=== PATIENT | female | born 1990 | race Caucasian/White ===

== ENCOUNTER 2016-07-20 19:58 | Emergency (ER) | payer MEDICAID ==
[~2016-07-20] VITALS: Ht 172.7 cm; Wt 59.0 kg
[~2016-07-20 19:58] MED LIST: ACETAMINOPHEN-H1 TA2 PO; ACETAMINOPHEN-O1 TAB PO; AMOXICILLIN 50500 MG PO; AMOXICILLIN875 MG PO; ANTIPYRINE-BENZOCAIN OT; ASPIRIN 325MG325 MG PO; BACTRIM DS 8001 TA1 PO; BACTRIM DS 8001 TAB PO; CIPRO 500MG TA500 MG PO; CITALOPRAM40 MG PO; CORTISPORIN OTI10 M1 OT; DARVON-N100 MG PO; DILAUDID4 MG PO; FLAGYL 500MG.500 MG PO; FLAGYL500 MG PO; FLEXERIL10 MG PO; FLOMAX 0.4MG C0.4 MG PO; FLOXIN 0.3%5 ML/BOT OT; LORTAB 5/500 501 TAB PO; LORTAB 500 MG-71 TAB PO; MACROBID 100MG100 M1 PO; MEDROL 4MG. DOSE4 MG PO; NAPROSYN500 M1 PO; NICODERM C21 MG/24 H TD; NITROFURANTOIN100 M4 PO; NOMEDS; NOMEDS *; NOMEDS XX; NORCO 325 MG-51 TAB PO; OMNICEF 300 MG300 MG PO; PERCOGESIC1 TAB PO; PHENERGAN 25MG.25 M1 PO; PRENATAL1 TA2 PO; PYRIDIUM 200MG200 MG PO; ROBAXIN-750750 M1 PO; SEPTRA DS 800 M1 TAB PO; ULTRACET 325 MG1 TAB PO; ULTRAM 50 MG TA50 MG PO; VICODIN 5/500 T1 TAB PO; VOLTAREN75 MG PO
[2016-07-20 20:26] LABS: URINE BILIRUBIN - DIPSTICK NEGATIVE (NEG); URINE BLOOD NEGATIVE (NEG)
--- NOTE | 2016-07-20 21:19 | Emergency Room Report ---
History of Present Illness Time Seen by 2024 Presenting Problem in Triage Pt arrived:Wheelchair Presenting Problem:PT C/O PAIN IN HER LOWER ABD AND ADVISES SHE HAS A HX OF ENDO AND HAS BEEN DEALING WITH THE PAIN FOR A COUPLE OF DAYS. 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 N Clinical Suspician of Infection? N Mental Status: 1 - Regular (Normal Baseline) Sepsis Risk:Low Sepsis Risk Have you (or family members/close friends) recently traveled outside the [place]? N If Yes, where/when: Have you had exposure to infectious disease within the past month? N TB? Other? Specify: Source patient, RN notes reviewed, family, old records Exam Limitations no limitations Comment lower pelvic pain with hx of endometrosis and saw dr beth today Cardiac Chest Pain Chest pain indicative of cardiac No Timing/Duration this evening Severity moderate ALLERGIES Coded Allergies: codeine (06/02/16) ketorolac (From TORADOL) (06/02/16) Home Medications Active Scripts Naproxen (Naprosyn 500MG Tab) 500 MG PO BID #14 TAB Prov: 07/17/16 History Medical History General CAD? No Angina: No [place]: No Hypertension? No Hyperlipidemia? No CHF? No DVT? No PE? No COPD? No Asthma? Yes Anemia? No GERD? No Gastric ulcers? No GI Bleed? No Hernia? No Thyroid Problems? No Hypothyroidism? No CVA? No Seizures? No Diabetes? No Renal Insuffiency? No End Stage Renal Disease? No UTI? Yes Stones? Yes BPH? No GB Disease: No Nephritic Syndrome? No Asplenia? No Hepatitis? No Sickle Cell Disease? No Arthritis? No Migraines? No Cataracts? No Glaucoma? No MRSA? No HIV? No TB? No Anxiety? No Depression? No Cancer? No More? 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 Respiratory denies cough, denies shortness of breath, denies wheezing Cardiovascular denies chest pain, denies palpitations, denies syncope Gastrointestinal see HPI, abdominal pain, nausea Genitourinary see HPI, abnormal vaginal bleeding. denies: discharge, dysuria, hematuria. Musculoskeletal denies back pain, denies joint pain, denies neck pain Skin denies rash Psychiatric/Neurological denies headache, denies seizure Physical Exam Vital Signs Vital Signs Date Time Temp Pulse Resp B/P Pulse O2 O2 Flow FiO2 Ox Delivery Rate 07/20 2101 84 16 95/53 98 07/20 2010 98.4 96 16 109/68 98 - WBC >12,000 or <4,000 or 10% bands? 2 or more SIRS Criteria Met? B/P: MAP:81 Creatinine >2.0? UA output<0.5ml/kg/hr for 2 hrs? Platelet count >100,000? Lactate >2.0mmol/1? INR >1.2 or PTT > than 60 sec? Evidence of Organ Dysfunction? Provider documented clinical suspician of infection? N Sepsis Criteria Count: 1 Sepsis Risk: Low Sepsis Risk General Appearance no apparent distress Eye Exam - bilateral eye PERRL, bilateral eye EOMI Ear, Nose, Throat normal ENT inspection Neck supple Respiratory Status No: respiratory distress. 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 No Results/Orders Laboratory Tests 07/20/161999: Urine Color YELLOW, Urine Appearance CLEAR, Urine pH 7.0, Ur Specific [place] 1.010, Urine Protein NEGATIVE, Urine Ketones NEGATIVE, Urine Blood NEGATIVE, Urine Nitrate NEGATIVE, Urine Bilirubin NEGATIVE, Urine Urobilinogen 0.2, Ur Leukocyte Esterase NEGATIVE, Urine RBC 3-5, Urine WBC 3-5, Urine Bacteria 1+, Urine Mucus 1+, Urine Glucose NEGATIVE Orders Procedure Date/time Status URINALYSIS/COMPLETE 07/20 2018 Complete Departure Departure Time of Disposition 2114 Disposition DC Home or Self Care(routine) Clinical Impression Primary Impression: Pelvic pain Condition STABLE Referrals Filipe HERRERA,Bryan Hook (Family) Patient Instructions DI for Endometriosis Additional Instructions please see pcp and budget counselor for follow up Discharge Counseling Counseled pt/family regarding diagnosis, test results, medications/RX, follow up needs ED Critical Care Critical Care No at [phone]
--- NOTE | 2016-07-20 21:19 | Emergency Room Report ---
History of Present Illness Time Seen by 2024 Presenting Problem in Triage Pt arrived:Wheelchair Presenting Problem:PT C/O PAIN IN HER LOWER ABD AND ADVISES SHE HAS A HX OF ENDO AND HAS BEEN DEALING WITH THE PAIN FOR A COUPLE OF DAYS. 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 N Clinical Suspician of Infection? N Mental Status: 1 - Regular (Normal Baseline) Sepsis Risk:Low Sepsis Risk Have you (or family members/close friends) recently traveled outside the [place]? N If Yes, where/when: Have you had exposure to infectious disease within the past month? N TB? Other? Specify: Source patient, RN notes reviewed, family, old records Exam Limitations no limitations Comment lower pelvic pain with hx of endometrosis and saw dr beth today Cardiac Chest Pain Chest pain indicative of cardiac No Timing/Duration this evening Severity moderate ALLERGIES Coded Allergies: codeine (06/02/16) ketorolac (From TORADOL) (06/02/16) Home Medications Active Scripts Naproxen (Naprosyn 500MG Tab) 500 MG PO BID #14 TAB Prov: 07/17/16 History Medical History General CAD? No Angina: No [place]: No Hypertension? No Hyperlipidemia? No CHF? No DVT? No PE? No COPD? No Asthma? Yes Anemia? No GERD? No Gastric ulcers? No GI Bleed? No Hernia? No Thyroid Problems? No Hypothyroidism? No CVA? No Seizures? No Diabetes? No Renal Insuffiency? No End Stage Renal Disease? No UTI? Yes Stones? Yes BPH? No GB Disease: No Nephritic Syndrome? No Asplenia? No Hepatitis? No Sickle Cell Disease? No Arthritis? No Migraines? No Cataracts? No Glaucoma? No MRSA? No HIV? No TB? No Anxiety? No Depression? No Cancer? No More? 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 Respiratory denies cough, denies shortness of breath, denies wheezing Cardiovascular denies chest pain, denies palpitations, denies syncope Gastrointestinal see HPI, abdominal pain, nausea Genitourinary see HPI, abnormal vaginal bleeding. denies: discharge, dysuria, hematuria. Musculoskeletal denies back pain, denies joint pain, denies neck pain Skin denies rash Psychiatric/Neurological denies headache, denies seizure Physical Exam Vital Signs Vital Signs Date Time Temp Pulse Resp B/P Pulse O2 O2 Flow FiO2 Ox Delivery Rate 07/20 2101 84 16 95/53 98 07/20 2010 98.4 96 16 109/68 98 - WBC >12,000 or <4,000 or 10% bands? 2 or more SIRS Criteria Met? B/P: MAP:81 Creatinine >2.0? UA output<0.5ml/kg/hr for 2 hrs? Platelet count >100,000? Lactate >2.0mmol/1? INR >1.2 or PTT > than 60 sec? Evidence of Organ Dysfunction? Provider documented clinical suspician of infection? N Sepsis Criteria Count: 1 Sepsis Risk: Low Sepsis Risk General Appearance no apparent distress Eye Exam - bilateral eye PERRL, bilateral eye EOMI Ear, Nose, Throat normal ENT inspection Neck supple Respiratory Status No: respiratory distress. 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 No Results/Orders Laboratory Tests 07/20/161999: Urine Color YELLOW, Urine Appearance CLEAR, Urine pH 7.0, Ur Specific [place] 1.010, Urine Protein NEGATIVE, Urine Ketones NEGATIVE, Urine Blood NEGATIVE, Urine Nitrate NEGATIVE, Urine Bilirubin NEGATIVE, Urine Urobilinogen 0.2, Ur Leukocyte Esterase NEGATIVE, Urine RBC 3-5, Urine WBC 3-5, Urine Bacteria 1+, Urine Mucus 1+, Urine Glucose NEGATIVE Orders Procedure Date/time Status URINALYSIS/COMPLETE 07/20 2018 Complete Departure Departure Time of Disposition 2114 Disposition DC Home or Self Care(routine) Clinical Impression Primary Impression: Pelvic pain Condition STABLE Referrals Filipe HERRERA,Bryan Hook (Family) Patient Instructions DI for Endometriosis Additional Instructions please see pcp and purchasing department clerk for follow up Discharge Counseling Counseled pt/family regarding diagnosis, test results, medications/RX, follow up needs ED Critical Care Critical Care No at [phone]
[2016-07-20 21:30] VITALS: BP 99/53
[2016-08-31] MEDS ORDERED: NORCO1 TAB PO (10:35)
[2016-09-01] MEDS ORDERED: HYDROMORPHONE2 MG PO (07:59)
[2016-09-01] MEDS ORDERED: MOTRIN 400MG.400 MG PO (08:00)
[2016-09-03] MEDS ORDERED: MOTRIN 600MG.600 MG PO (19:12)
== END 2016-07-20 21:30 | disposition home or self-care (01) ==
LOC: ER 19:58
PROVIDERS: Emergency Medicine
DX: R10.2 Pelvic and perineal pain (principal); N80.0 Endometriosis of uterus

== ENCOUNTER 2017-03-03 20:21 | Emergency (ER) | payer SELFPAY ==
[~2017-03-03] VITALS: Ht 172.7 cm; Wt 56.7 kg
[~2017-03-03 20:21] MED LIST changes: +DICLOFENAC 50MG50 MG PO; +HYDROMORPHONE2 MG PO; +MOTRIN 400MG.400 MG PO; +MOTRIN 600MG.600 MG PO; +NORCO1 TAB PO; +ROBAXIN500 M1 PO
[2017-03-03 20:39] LABS: URINE BILIRUBIN - DIPSTICK NEGATIVE (NEG); URINE BLOOD NEGATIVE (NEG)
[2017-03-03 20:48] LABS: AMPHETAMINES/METAMPHETAMINES NEGATIVE ng/mL (<1000)
[2017-03-03 21:37] LABS: LYMPH # 2.5 K/mm3 (0.7-4.5); LYMPH % 28.6 % (10-50.0)
[2017-03-03 21:41] LABS: HEMOGLOBIN 14.4 g/dL (12.2-16.2)
--- NOTE | 2017-03-03 22:01 | Emergency Room Report ---
History of Present Illness Time Seen by 2030 Presenting Problem in Triage Pt arrived:Walked Presenting Problem:C/O PAIN TO CENTER OF CHEST. REPORTS PAIN WORSE WITH INSPIRATION. C/O SHORTNESS OF BREATH. 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 N Clinical Suspician of Infection? N Mental Status: 1 - Regular (Normal Baseline) Sepsis Risk:Low Sepsis Risk Have you (or family members/close friends) recently traveled outside the [place]? N If Yes, where/when: Have you had exposure to infectious disease within the past month? N TB? Other? Specify: Source patient, RN notes reviewed, family, old records Exam Limitations no limitations Comment mid sternal chest pain which started tonight with pain with insp and some crsmpy abd pain Cardiac Chest Pain Chest pain indicative of cardiac No Timing/Duration this evening Severity moderate ALLERGIES Coded Allergies: tramadol (Mild, ITCHING 08/31/16) codeine (06/02/16) ketorolac (From TORADOL) (06/02/16) Home Medications Reported Medications No Known Home Medications History Medical History General CAD? No Angina: No [place]: No Hypertension? No Hyperlipidemia? No CHF? No DVT? No PE? No COPD? No Asthma? Yes Anemia? No GERD? No Gastric ulcers? No GI Bleed? No Hernia? No Thyroid Problems? No Hypothyroidism? No CVA? No Seizures? No Diabetes? No Renal Insuffiency? No End Stage Renal Disease? No UTI? Yes Stones? Yes BPH? No GB Disease: No Nephritic Syndrome? No Asplenia? No Hepatitis? No Sickle Cell Disease? No Arthritis? No Migraines? No Cataracts? No Glaucoma? No MRSA? No HIV? No TB? No Anxiety? No Depression? No Cancer? No More? 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 Respiratory denies cough, denies shortness of breath, denies wheezing Cardiovascular see HPI, chest pain, denies palpitations, denies syncope Gastrointestinal denies abdominal pain, denies diarrhea, denies vomiting Genitourinary denies: dysuria, frequency, hesitancy, hematuria. Musculoskeletal denies back pain, denies joint pain, denies joint swelling, denies neck pain Skin denies rash Psychiatric/Neurological denies headache, denies seizure Physical Exam Vital Signs Vital Signs Date Time Temp Pulse Resp B/P Pulse O2 O2 Flow FiO2 Ox Delivery Rate 03/03 2233 78 16 111/69 98 03/03 2138 98.3 63 16 109/66 99 03/03 2022 98.6 96 18 115/68 99 - WBC >12,000 or <4,000 or 10% bands? 2 or more SIRS Criteria Met? B/P: MAP:83 Creatinine >2.0? UA output<0.5ml/kg/hr for 2 hrs? Platelet count >100,000? Lactate >2.0mmol/1? INR >1.2 or PTT > than 60 sec? Evidence of Organ Dysfunction? Provider documented clinical suspician of infection? N Sepsis Criteria Count: 1 Sepsis Risk: Low Sepsis Risk General Appearance no apparent distress Eye Exam - bilateral eye PERRL, bilateral eye EOMI Ear, Nose, Throat normal ENT inspection Neck supple Respiratory Status No: trachea midline. Lung Sounds bilateral: lungs clear. 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 No Results/Orders Laboratory Tests 03/03/170: Sodium 141, Potassium 4.0, Chloride 103, Carbon Dioxide 30, BUN 8, Creatinine 0.6, Estimated Creat Clear 126, Estimated GFR (MDRD) 120, Glucose 92, Calcium 9.4, Total Bilirubin 0.6, AST 12 L, ALT 13, Alkaline Phosphatase 116, Creatine Kinase 55, CK-MB (CK-2) Rel Index 0.9, CK and CKMB Interp < 0.5, Troponin I < 0.02, Total Protein 8.0, Albumin 4.2, Globulin 3.8 H, Albumin/Globulin Ratio 1.1, Amylase 95, Lipase 154, WBC 8.6, RBC 4.66, Hgb 14.4, Hct 42.7, MCV 91.7, RDW 12.2, Plt Count 387, MPV 7.2 L, Gran % 67.0, Gran # 5.8, Lymphocytes % 28.6 , Monocytes % 3.3, Eosinophils % 0.8, Basophils % 0.3, Lymphocytes # 2.5, Monocytes # 0.3, Eosinophils # 0.1, Basophils # 0.0, PUBS MCHC 33.7, MCH 30.9 03/03/172029: Opiates Screen NEGATIVE, Urine Methadone Screen NEGATIVE, Barbiturates NEGATIVE, Phencyclidine Screen NEGATIVE, Amphetamines Screen NEGATIVE, Benzodiazepines Screen NEGATIVE, Cocaine Screen NEGATIVE, Marijuana (THC) Screen NEGATIVE, Urine Color YELLOW, Urine Appearance CLEAR, Urine pH 7.0, Ur Specific [place] 1.010, Urine Protein NEGATIVE, Urine Ketones NEGATIVE, Urine Blood NEGATIVE, Urine Nitrate NEGATIVE, Urine Bilirubin NEGATIVE, Urine Urobilinogen 0.2, Ur Leukocyte Esterase NEGATIVE, Urine Glucose NEGATIVE Current Medication Orders Sig/Sonam Start time Last Medication Dose Route Stop Time Status Admin Famotidine 20 MG ONCE ONE 03/03 2215 DC 03/03 IV 03/03 Metoclopramide HCl 10 MG ONCE ONE 03/03 2215 DC 03/03 IVP 03/03 Sodium Chloride 8 ML ONCE ONE 03/03 2215 DC 03/03 IV 03/03 Famotidine 0 .STK-MED ONE 03/03 2205 DC IV Sodium Chloride 0 .STK-MED ONE 03/03 2205 DC IV Metoclopramide HCl 0 .STK-MED ONE 03/03 2204 DC .ROUTE Sodium Chloride 10 ML PRN PRN 03/03 2030 AC IV 03/04 2030 Orders Procedure Date/time Status DIET-NOTHING BY MOUTH 03/[address] ABD & PELVIS W/O CONTRAST 03/03 2050 Active 12 LEAD EKG-BESSON (INITIAL) 03/03 2031 Active ELECTROCARDIOGRAM REQUEST 03/[address] ABD/PELVIS REQ 03/03 2031 Complete CHEST(2 VIEWS-NOT PORTABLE) 03/03 2031 Active IV SALINE LOCK 03/03 2031 Active URINALYSIS/COMPLETE 03/03 2031 Complete LIPASE 03/03 2031 Complete DRUG ABUSE SCREEN (TRIAGE) 03/03 2031 Complete COMPLETE METABOLIC PANEL 03/03 2031 Complete CBC WITH AUTO DIFF 03/03 2031 Complete CARDIAC ENZYMES 03/03 2031 Complete AMYLASE 03/03 2031 Complete CM/EKG CM/physician assistant certified Rhythm Normal Sinus Rhythm EKG no evid. of ischemic chgs XRAY/CT/US XRAY/CT/US 1 CT abdomen, pelvis CT interpretation by discussed w/radiologist Time results known: 2155 CT Results normal/NAD XRAY/CT/US 2 XRAY chest XR interpretation by reviewed by me Xray Results normal/NAD Departure Departure Time of Disposition 2155 Disposition DC Home or Self Care(routine) Clinical Impression Primary Impression: Chest pain Qualifiers: Chest pain type: unspecified Qualified Code: R07.9 - Chest pain, unspecified Condition STABLE Referrals Bryan Dent MD (Family) Patient Instructions DI for Atypical Chest Pain Additional Instructions see pcp for follow up Discharge Counseling Counseled pt/family regarding diagnosis, test results, medications/RX, follow up needs Prescriptions Current Visit Scripts No Known Home Medications ED Critical Care Critical Care No at 2250
[2017-03-03 22:03] LABS: BUN 8 mg/dL (7-18)
[2017-03-03 22:05] LABS: GFR (ESTIMATED) 120 ML/MIN (59-)
[2017-03-03 22:56] VITALS: BP 111/69
--- NOTE | 2017-03-04 05:10 | RADIOLOGY REPORT PS360 ---
CHEST(2 VIEWS-NOT PORTABLE) HISTORY: C/O CHEST PAIN ORDERING PHYSICIAN: Arsen Dent MD PATIENT AGE: 26 years COMPARISON: 02/22/2014 FINDINGS: The cardiomediastinal silhouette and pulmonary vascularity are within normal limits. The lungs are clear without infiltrates, suspicious nodules, or pleural effusions. No acute bony abnormalities. IMPRESSION: Negative chest, no acute finding
--- NOTE | 2017-03-04 06:24 | RADIOLOGY REPORT PS360 ---
CT ABD PELVIS W/O CONTRAST CLINICAL INDICATION: Generalized abdominal pain with diarrhea C/O ABD PAIN ORDERING PHYSICIAN: Arsen Dent MD PATIENT AGE: 26 years COMPARISON: 10/31/2015 TECHNIQUE: Axial images obtained with sagittal and coronal reformats. PROCEDURE: Oral Contrast: None IV Contrast: None . FINDINGS: The lung bases are clear. The liver, gallbladder, spleen, adrenal glands, and pancreas have an unremarkable unenhanced CT appearance. There is a nonobstructing 2 mm stone in the upper pole the right kidney. No hydronephrosis or hydroureter. No ureteral calculi. Unremarkable appearing urinary bladder. No intestinal obstruction or free air. No evidence of appendicitis or diverticulitis. Post hysterectomy changes. Bilateral tubal ligation clips are present. There may be a small right ovarian cyst at 2 cm. No acute bony anomalies. A small bone island is present in the proximal right femur. IMPRESSION: 1. No acute intra-abdominal or pelvic pathology. 2. Nonobstructing right renal calculus. 3. 2 cm right ovarian cyst
== END 2017-03-03 22:57 | disposition home or self-care (01) ==
LOC: ER 20:21
PROVIDERS: Emergency Medicine
DX: R07.9 Chest pain, unspecified (principal); Z72.0 Tobacco use

== ENCOUNTER 2017-05-04 14:49 | Emergency (ER) | payer SELFPAY ==
[~2017-05-04] VITALS: Ht 172.7 cm; Wt 56.7 kg
--- NOTE | 2017-05-04 15:04 | Emergency Room Report ---
History of Present Illness Time Seen by MD Harper Presenting Problem in Triage Pt arrived:Walked Presenting Problem:PT C/O TIREDNESS, N/V/D, ABDOMINAL PAIN, COLD AND HOT FLASHES , AND POSSIBLE FEVERS. 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 N Clinical Suspician of Infection? N Mental Status: 1 - Regular (Normal Baseline) Sepsis Risk:Low Sepsis Risk Have you (or family members/close friends) recently traveled outside the [place]? N If Yes, where/when: Have you had exposure to infectious disease within the past month? N TB? Other? Specify: Comment The patient says that she got up this morning not feeling well, had diarrhea when she went to the bathroom. She is continuing to have diarrhea, 4 episodes. 2 episodes of vomiting. Pain in her midepigastrium. She feels chilled, but temperature not taken. No blood in the stool. No recent exposures, travel, or antibiotics. ALLERGIES Coded Allergies: tramadol (Mild, ITCHING 08/31/16) codeine (06/02/16) ketorolac (From TORADOL) (06/02/16) History Medical History General CAD? No Angina: No NH: No Hypertension? No Hyperlipidemia? No CHF? No DVT? No PE? No COPD? No Asthma? Yes Anemia? No GERD? No Gastric ulcers? No GI Bleed? No Hernia? No Thyroid Problems? No Hypothyroidism? No CVA? No Seizures? No Diabetes? No Renal Insuffiency? No End Stage Renal Disease? No UTI? Yes Stones? Yes BPH? No GB Disease: No Nephritic Syndrome? No Asplenia? No Hepatitis? No Sickle Cell Disease? No Arthritis? No Migraines? No Cataracts? No Glaucoma? No MRSA? No HIV? No TB? No Anxiety? No Depression? No Cancer? No More? 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 Family History Family Hx Diabetes No CAD No Hypertension Yes Hyperlipidemia No Cancer No TB No Social History Smoking Hx Smoker: Current Every Day Smoker Tobacco: Yes Type Cigarettes Packs/day < 1 Pack Alcohol Alcohol: No Review of Systems All Other Systems Reviewed and Negative Constitutional chills Gastrointestinal abdominal pain, diarrhea, nausea, vomiting Physical Exam Vital Signs Vital Signs Date Time Temp Pulse Resp B/P Pulse O2 O2 Flow FiO2 Ox Delivery Rate 05/04 1736 98.3 96 18 108/62 98 05/04 1453 98.0 78 20 106/60 98 General Appearance no apparent distress Eye Exam - bilateral eye EOMI Ear, Nose, Throat hearing grossly normal, normal ENT inspection Neck normal inspection, full range of motion Respiratory Status Yes: trachea midline, chest symmetrical. No: respiratory distress. Lung Sounds bilateral: normal breath sounds, lungs clear. Cardiovascular normal exam, regular rate/rhythm, no peripheral edema, no gallop, no JVD, no murmur, no rub, normal peripheral pulses Peripheral Pulses Pulses normal Yes Gastrointestinal normal bowel sounds, soft, no organomegaly, no guarding, no rebound, tenderness (epigastric and LLQ) Extremities normal inspection Neurologic alert, oriented x 3 Mental status normal mood/affect Skin intact, normal color, warm/dry Medical Decision Making LABS/Meds/Orders Pt receiving controlled substance in ED? No Cassius was queried for this patient? Yes Comment [id number] rxs. last rx 11/03/16, 6 percocet 7.5mg. Results/Orders Laboratory Tests 05/04/17 1645: Opiates Screen POSITIVE H, Urine Methadone Screen NEGATIVE, Barbiturates NEGATIVE, Phencyclidine Screen NEGATIVE, Amphetamines Screen NEGATIVE, Benzodiazepines Screen NEGATIVE, Cocaine Screen NEGATIVE, Marijuana (THC) Screen NEGATIVE, Urine Color YELLOW, Urine Appearance CLEAR, Urine pH 7.0, Ur Specific [place] <= 1.005, Urine Protein NEGATIVE, Urine Ketones NEGATIVE, Urine Blood NEGATIVE, Urine Nitrate NEGATIVE, Urine Bilirubin NEGATIVE, Urine Urobilinogen 0.2, Ur Leukocyte Esterase NEGATIVE, Urine RBC NONE, Urine WBC OCC, Ur Squamous Epith Cells TNTC, Urine Bacteria 3+, Urine Glucose NEGATIVE 05/04/17 1521: Sodium 136, Potassium 3.8, Chloride 104, Carbon Dioxide 27, BUN 11, Creatinine 0.6, Estimated Creat Clear 126, Estimated GFR (MDRD) 120, Glucose 93, Calcium 8.9, Total Bilirubin 0.5, AST 19, ALT 15, Alkaline Phosphatase 95, Total Protein 7.4, Albumin 3.9, Globulin 3.5 H, Albumin/Globulin Ratio 1.1, Lipase 121, WBC 7.8, RBC 4.84, Hgb 15.0, Hct 44.3, MCV 91.5, RDW 12.5, Plt Count 329, MPV 7.3 L , Gran % 68.5, Gran # 5.4, Lymphocytes % 22.2, Monocytes % 7.9, Eosinophils % 1.2, Basophils % 0.3, Lymphocytes # 1.7, Monocytes # 0.6, Eosinophils # 0.1, Basophils # 0.0, PUBS MCHC 33.9, MCH 31.0 Current Medication Orders Sig/Sonam Start time Last Medication Dose Route Stop Time Status Admin Acetaminophen 650 MG ONCE ONE 05/04 1715 DC PO 05/04 1716 Loperamide HCl 4 MG ONCE ONE 05/04 1515 DC 05/04 PO 05/04 1516 1522 Ondansetron HCl 4 MG ONCE ONE 05/04 1515 DC 05/04 IV 05/04 1516 1522 Sodium Chloride 1,000 ML .Q1H1M 05/04 1515 DC 05/04 IV 05/04 1615 1522 Sodium Chloride 10 ML PRN PRN 05/04 1515 DCD 05/04 IV 05/05 1506 1523 Sodium Chloride 10 ML PRN PRN 05/04 1515 DCD IV 05/05 1507 Loperamide HCl 0 .STK-MED ONE 05/04 1513 DC PO Ondansetron HCl 0 .STK-MED ONE 05/04 1513 DC .ROUTE Sodium Chloride 1,000 ML .STK-MED ONE 05/04 1513 DC IV Orders Procedure Date/time Status CULTURE, URINE 05/04 1645 Active DRUG ABUSE SCREEN (TRIAGE) 05/04 1516 Complete IV SALINE LOCK 05/04 1508 Active URINALYSIS/COMPLETE 05/04 1508 Complete LIPASE 05/04 1508 Complete CBC WITH AUTO DIFF 05/04 1508 Complete CHEM 12 PROFILE 05/04 1508 Complete Progress ED Progress Notes Date 05/04/17 Time 1702 Comment Discussed patient's drug test result. She says she has not been using any opiates. Denies the possibility of withdrawal. 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 - 1645: Patient says she feels worse, says "my head is throbbing". Departure Departure Disposition DC Home or Self Care(routine) Clinical Impression Primary Impression: Acute gastroenteritis Condition STABLE Referrals Filipe HERRERA,Bryan Hook (Family) Patient Instructions DI for Viral Gastroenteritis -- Adult Additional Instructions Additional instructions for ABDOMINAL PAIN/VOMITING/DIARRHEA: See your physician as soon as possible for further evaluation. Return immediately if severe abdominal pain, uncontrollable vomiting, shortness of breath, fever, vomiting of blood or abdominal distention. Prescriptions Current Visit Scripts Ondansetron (Zofran 4MG Odt) 4 MG PO Q8HP PRN NAUSEA AND VOMITING #10 ODT Loperamide Hcl (Loperamide) 2 MG PO Q6HP PRN DIARRHEA #10 CAP Dicyclomine Hcl (Bentyl 20mg Tab (Generic)) 20 MG PO TIDP PRN abdominal pain #10 TAB ED Critical Care Critical Care No at 2012
--- OUTSIDE RECORDS SUMMARY | 2017-05-04 15:12 | External Medical Summary Rpt | CCD ---
Author Author [employer] Organization [employer] Address Unknown Phone Unavailable Purpose Continuity of Care Document - through 2016
--- OUTSIDE RECORDS SUMMARY | 2017-05-04 15:12 | External Medical Summary Rpt | CCD ---
Author Author , BESS Organization BESS Address Unknown Phone [email or web address] Purpose Continuity of Care Document - 11-22-2012 through 2016 Results Labs Lab Lab Date Result Refere Interp Status Commen Order Detail nces retati t Range on Drugs identified in Urine by Screen method (03-03-2017 20:30) Ampheta NEGATIV <1000 complet mine 017 E ed [Presen 20:30 ce] in Urine by Screen method 11-Hydr NEGATIV <50 complet oxy 017 E ed delta-9 20:30 tetrahy drocann abinol [Presen ce] in Unspeci fied specime n Urinalysis dipstick W Reflex Microscopic panel in Urine (03-03-2017 20:30) Appeara CLEAR CLEAR complet nce of 017 ed Urine 20:30 Bilirub NEGATIV NEG complet in 017 E ed [Presen 20:30 ce] in Urine by Test strip Erythro NEGATIV NEG complet cytes 017 E ed [Presen 20:30 ce] in Urine Color YELLOW YELLOW complet of 017 ed Urine 20:30 Ketones NEGATIV NEG complet 017 E ed [Presen 20:30 ce] in Urine by Automat ed test strip Mucus NEGATIV NEG complet [Presen 017 E ed ce] in 20:30 Urine sedimen t by Light microsc opy Nitrite NEGATIV NEG complet 017 E ed [Presen 20:30 ce] in Urine by Test strip Urobili 0.2 NEG complet nogen 017 ed [Presen 20:30 ce] in Urine by Test strip CHLAMYDIA AND GONORRHEA TESTING (11-22-2012 11:00) Chlamyd NEGATIV complet ia 013 E ed trachom 11:00 atis rRNA [Presen ce] in Unspeci fied specime n by Probe & target amplifi cation method Neisser NEGATIV complet ia 013 E ed gonorrh 11:00 oeae rRNA [Presen ce] in Unspeci fied specime n by Probe & target amplifi cation method CHLAMYDIA AND GONORRHEA TESTING (11-22-2012 11:00) COLLECT NA complet OR 013 ed 11:00 ETHNICI WHITE, complet TY 013 NON-HIS ed 11:00 PANIC KIT 03-27-13 complet EXPIRAT 013 ed ION 11:00 DATE SYMPTOM NO complet S 013 ed 11:00 REASON REVISIT complet FOR 013 /ANNUAL ed REQUEST 11:00 FAMILY PLANNIN G VISIT SPECIME URINE complet N 013 ed SOURCE 11:00 PREGNAN NO complet T 013 ed 11:00 CHART NA complet NUMBER 013 ed 11:00 Chlamyd Pending complet ia 013 ed trachom 11:00 atis rRNA [Presen ce] in Unspeci fied specime n by Probe & target amplifi cation method Neisser Pending complet ia 013 ed gonorrh 11:00 oeae rRNA [Presen ce] in Unspeci fied specime n by Probe & target amplifi cation method
--- OUTSIDE RECORDS SUMMARY | 2017-05-04 15:12 | External Medical Summary Rpt | CCD ---
Author Author , BESS Organization BESS Address Unknown Phone [email or web address] Purpose Continuity of Care Document - 11-22-2012 [...]
--- OUTSIDE RECORDS SUMMARY | 2017-05-04 15:13 | External Medical Summary Rpt ---
Author Author BESS Shelly, [employer] Organization [employer] Address Unknown Phone Unavailable Results CBC W Auto Differential panel in Blood Observa Value Referen Units Interpr Notes Date tion ce etation Range Basophils 0 - 0.2 K/MM3 Normal No Sep 6 informati 2017 9:30 [#/volume on in PM ] in source Blood by data Automated count Basophils 0.1 - 2.0 % Normal No Sep 6 /100 informati 2017 9:30 leukocyte on in PM s in source Blood by data Automated count Eosinophi 0.0 - 0.4 K/mm3 Normal No Sep 6 ls informati 2017 9:30 [#/volume on in PM ] in source Blood by data Automated count Eosinophi 0.1 - % Normal No Sep 6 ls/100 12.0 informati 2017 9:30 leukocyte on in PM s in source Blood by data Automated count Granulocy 1.8 - 7.8 K/mm3 Normal No Sep 6 zion informati 2017 9:30 [#/volume on in PM ] in source Blood by data Automated count Granulocy 37.0 - % Normal No Sep 6 zion/100 80.0 informati 2017 9:30 leukocyte on in PM s in source Blood by data Automated count Hematocri 37.0 - % Normal No Sep 6 t [Volume 47.0 informati 2017 9:30 on in PM Fraction] source of Blood data Hemoglobi 12.2 - g/dL No No Sep 6 n 16.2 informati informati 2017 9:30 [Mass/vol on in on in PM ume] in source source Blood data data Lymphocyt 0.7 - 4.5 K/mm3 Normal No Sep 6 es informati 2017 9:30 [#/volume on in PM ] in source Unspecifi data ed specimen by Automated count Lymphocyt 10 - 50.0 % Normal No Sep 6 es informati 2017 9:30 [#/volume on in PM ] in source Unspecifi data ed specimen by Automated count Erythrocy 27 - 31.2 pg Normal No Sep 6 te mean informati 2017 9:30 corpuscul on in PM ar source hemoglobi data n [Entitic mass] Erythrocy 31.8 - g/dl Normal No Sep 6 te mean 35.4 informati 2017 9:30 corpuscul on in PM ar source hemoglobi data n concentra tion [Mass/vol ume] by Automated count Erythrocy 82.2 - fl Normal No Sep 6 te mean 97.8 informati 2016 9:30 corpuscul on in PM ar volume source [Entitic data volume] by Automated count Monocytes 0.1 - 1.0 K/mm3 Normal No Sep 6 informati 2016 9:30 [#/volume on in PM ] in source Blood by data Automated count Monocytes 1.7 - 9.3 % Normal No Sep 6 /100 informati 2017 9:30 leukocyte on in PM s in source Blood by data Automated count Platelet 7.4 - fl Low No Sep 6 mean 10.4 informati 2017 9:30 volume on in PM [Entitic source volume] data in Blood by Automated count Platelets 142 - 424 K/mm3 Normal No Sep 6 informati 2017 9:30 [#/volume on in PM ] in source Blood data Erythrocy 4.2 - 5.4 M/mm3 Normal No Sep 6 zion informati 2017 9:30 [#/volume on in PM ] in source Amniotic data fluid Erythrocy 11.5 - % Normal No Sep 6 te 17.5 informati 2017 9:30 distribut on in PM ion width source [Entitic data volume] by Automated count Leukocyte 4.8 - K/MM3 Normal No Sep 6 s 10.8 informati 2016 9:30 [#/volume on in PM ] in source Blood data Drugs identified in Urine by Screen method Observa Value Referen Units Interpr Notes Date tion ce etation Range Positive urine drug screen samples are stored for 7 days. Contact the Lab if confirmation of positives is needed. Ampheta NEGATIV <1000 ng/mL No No Sep 6 mine E informa informa 2017 [Presen tion in tion in 8:30 PM ce] in source source Urine data data by Screen method Barbitura <200 ng/mL No No Sep 6 zion informati informati 2017 8:30 [Mass/vol on in on in PM ume] in source source Urine by data data Screen method Benzodiaz 200 ng/mL ng/mL No No Sep 6 epines informati informati 2017 8:30 [Mass/vol on in on in PM ume] in source source Serum or data data Plasma by Screen method Cocaine <300 ng/g No No Sep 6 [Mass/vol informati informati 2017 8:30 ume] in on in on in PM Unspecifi source source ed data data specimen Methadone <300 ng/mL No No Sep 6 informati informati 2017 8:30 [Mass/vol on in on in PM ume] in source source Unspecifi data data ed specimen Opiates <300 ng/mL No No Sep 6 [Mass/vol informati informati 2017 8:30 ume] in on in on in PM Unspecifi source source ed data data specimen Phencycli <25 ng/mL No No Sep 6 dine informati informati 2017 8:30 [Mass/vol on in on in PM ume] in source source Unspecifi data data ed specimen 11-Hydr NEGATIV <50 ng/mL No No Sep 6 oxy E informa informa 2017 delta-9 tion in tion in 8:30 PM source source tetrahy data data drocann abinol [Presen ce] in Unspeci fied specime n Urinalysis dipstick W Reflex Microscopic panel in Urine Observa Value Referen Units Interpr Notes Date tion ce etation Range Appeara CLEAR CLEAR No No No Sep 6 nce of informa informa informa 2017 Urine tion in tion in tion in 8:30 PM source source source data data data Bilirub NEGATIV NEG No No No Sep 6 in E informa informa informa 2017 [Presen tion in tion in tion in 8:30 PM ce] in source source source Urine data data data by Test strip Erythro NEGATIV NEG No No No Sep 6 cytes E informa informa informa 2017 [Presen tion in tion in tion in 8:30 PM ce] in source source source Urine data data data Color YELLOW YELLOW No No No Sep 6 of informa informa informa 2017 Urine tion in tion in tion in 8:30 PM source source source data data data Glucose NEG No No No Sep 6 [Mass/vol informati informati informati 2017 8:30 ume] in on in on in on in PM Urine by source source source Test data data data strip Ketones NEGATIV NEG mg/dL No No Sep 6 E informa informa 2017 [Presen tion in tion in 8:30 PM ce] in source source Urine data data by Automat ed test strip Mucus NEGATIV NEG No No No Sep 6 [Presen E informa informa informa 2016 ce] in tion in tion in tion in 8:30 PM Urine source source source sedimen data data data t by Light microsc opy Nitrite NEGATIV NEG No No No Sep 6 E informa informa informa 2017 [Presen tion in tion in tion in 8:30 PM ce] in source source source Urine data data data by Test strip pH of 5.0 - 8.5 No Normal No Sep 6 Urine informati informati 2017 8:30 on in on in PM source source data data Protein NEG mg/dL No No Sep 6 [Mass/vol informati informati 2017 8:30 ume] in on in on in PM Urine by source source Automated data data test strip Specific 1.005 - No Normal No Sep 6 gravity 1.030 informati informati 2017 8:30 of Urine on in on in PM source source data data Urobili 0.2 NEG E.U./dL No No Sep 6 nogen informa informa 2016 [Presen tion in tion in 8:30 PM ce] in source source Urine data data by Test strip CHLAMYDIA AND GONORRHEA TESTING Observa Value Referen Units Interpr Notes Date tion ce etation Range COLLECT NA No No No No November 22 OR informa informa informa informa 2013 tion in tion in tion in tion in 11:00 source source source source AM data data data data ETHNICI WHITE, No No No No November 22 TY NON-HIS informa informa informa informa 2013 PANIC tion in tion in tion in tion in 11:00 source source source source AM data data data data KIT 9-30-13 No No No No November 22 EXPIRAT informa informa informa informa 2013 ION tion in tion in tion in tion in 11:00 DATE source source source source AM data data data data SYMPTOM NO No No No No November 22 S informa informa informa informa 2013 tion in tion in tion in tion in 11:00 source source source source AM data data data data REASON REVISIT No No No No November 22 FOR /ANNUAL informa informa informa informa 2013 REQUEST FAMILY tion in tion in tion in tion in 11:00 source source source source AM PLANNIN data data data data G VISIT SPECIME URINE No No No No November 22 N informa informa informa informa 2013 SOURCE tion in tion in tion in tion in 11:00 source source source source AM data data data data PREGNAN NO No No No No November 22 T informa informa informa informa 2013 tion in tion in tion in tion in 11:00 source source source source AM data data data data CHART NA No No No No November 22 NUMBER informa informa informa informa 2013 tion in tion in tion in tion in 11:00 source source source source AM data data data data Chlamyd NEGATIV No No No NEGATIV November 22 ia E informa informa informa E 2013 trachom tion in tion in tion in RESULT= 11:00 atis source source source WITHIN AM rRNA data data data NORMAL [Presen ce] in LIMITSP Unspeci OSITIVE fied specime RESULT= n by Probe & ABNORMA target LEQUIVO JEF amplifi RESULT= cation method INDETER MINATEU NSATISF ACTORY RESULT= INVALID Neisser NEGATIV No No No NEGATIV November 22 ia E informa informa informa E 2013 gonorrh tion in tion in tion in RESULT= 11:00 oeae source source source WITHIN AM rRNA data data data NORMAL [Presen ce] in LIMITSP Unspeci OSITIVE fied specime RESULT= n by Probe & ABNORMA target LEQUIVO JEF amplifi RESULT= cation method INDETER MINATEU NSATISF ACTORY RESULT= INVALID THE APTIMA COMBO 2 ASSAY IS NOT INTENDE D FOR THE EVALUAT ION OF SUSPECT EDSEXUA L ABUSE OR FOR OTHER MEDICO- LEGAL INDICAT IONS. FOR THOSE PATIENT S FORWHOM A FALSE POSITIV E RESULT MAY HAVE ADVERSE PSYCHO- SOCIAL IMPACT, [facility] MMENDS RETESTI NG.\.br \This report contain s patient informa tion that must be protect ed in accorda nce with the Health Insuran ce Portabi lity and Account ability Act. CHLAMYDIA AND GONORRHEA TESTING Observa Value Referen Units Interpr Notes Date tion ce etation Range COLLECT NA No No No No November 22 OR informa informa informa informa 2013 tion in tion in tion in tion in 11:00 source source source source AM data data data data ETHNICI WHITE, No No No No November 22 TY NON-HIS informa informa informa informa 2013 PANIC tion in tion in tion in tion in 11:00 source source source source AM data data data data KIT 9-30-13 No No No No November 22 EXPIRAT informa informa informa informa 2013 ION tion in tion in tion in tion in 11:00 DATE source source source source AM data data data data SYMPTOM NO No No No No November 22 S informa informa informa informa 2013 tion in tion in tion in tion in 11:00 source source source source AM data data data data REASON REVISIT No No No No November 22 FOR /ANNUAL informa informa informa informa 2013 REQUEST FAMILY tion in tion in tion in tion in 11:00 source source source source AM PLANNIN data data data data G VISIT SPECIME URINE No No No No November 22 N informa informa informa informa 2013 SOURCE tion in tion in tion in tion in 11:00 source source source source AM data data data data PREGNAN NO No No No No November 22 T informa informa informa informa 2013 tion in tion in tion in tion in 11:00 source source source source AM data data data data CHART NA No No No No November 22 NUMBER informa informa informa informa 2013 tion in tion in tion in tion in 11:00 source source source source AM data data data data Chlamyd Pending No No No No November 22 ia informa informa informa informa 2013 trachom tion in tion in tion in tion in 11:00 atis source source source source AM rRNA data data data data [Presen ce] in Unspeci fied specime n by Probe & target amplifi cation method Neisser Pending No No No \.br\November 22 ia informa informa informa is 2013 gonorrh tion in tion in tion in report 11:00 oeae source source source contain AM rRNA data data data s [Presen patient ce] in Unspeci informa fied tion specime that n by must be Probe & target protect ed in amplifi accorda cation nce method with the Health Insuran ce Portabi lity and Account ability Act.
--- OUTSIDE RECORDS SUMMARY | 2017-05-04 15:13 | External Medical Summary Rpt ---
[...] MAY HAVE ADVERSE PSYCHO- SOCIAL IMPACT, [facility] MM[facility] RETESTI NG.\.br \This report contain s [...]
--- OUTSIDE RECORDS SUMMARY | 2017-05-04 15:13 | External Medical Summary Rpt | CCD ---
Author Author , BESS KELLOGG Address Unknown Phone [email or web address] Immunization Name Date Rout CVX Reac Dose Comm Prov Is Faci e tion ent ider Refu lity Give sed n Tdap 05-2 115 999 Hist H149 No H149 , 8-20 oric Adso 13 al rbed Info rmat ion - Sour ce Unsp ecif ied Hep 02-2 8 999 Hist H149 No H149 B, 5-20 oric ped/ 02 al adol Info rmat ion - Sour ce Unsp ecif ied Hep 10-0 8 999 Hist H149 No H149 B, 3-20 oric ped/ 01 al adol Info rmat ion - Sour ce Unsp ecif ied Hep 08-2 8 999 Hist H149 No H149 B, 0-20 oric ped/ 01 al adol Info rmat ion - Sour ce Unsp ecif ied MMR 08-2 3 999 Hist H149 No H149 0-20 oric 01 al Info rmat ion - Sour ce Unsp ecif ied
--- OUTSIDE RECORDS SUMMARY | 2017-05-04 15:13 | External Medical Summary Rpt | CCD ---
Author Author , BESS KELLOGG Address Unknown Phone [email or web address] Immunization Name Date Rout CVX Reac Dose [...]
[2017-05-04 15:36] LABS: LYMPH # 1.7 K/mm3 (0.7-4.5); LYMPH % 22.2 % (10-50.0)
[2017-05-04 16:47] LABS: URINE BILIRUBIN - DIPSTICK NEGATIVE (NEG); URINE BLOOD NEGATIVE (NEG)
[2017-05-04 16:56] LABS: AMPHETAMINES/METAMPHETAMINES NEGATIVE ng/mL (<1000)
[2017-05-04 16:59] LABS: URINE SQUAMOUS CELLS TNTC #/hpf (0-5)
[2017-05-04] MEDS ORDERED: ZOFRAN ODT4 MG PO (17:04)
[2017-05-04] MEDS ORDERED: IMODIUM 2MG. CAP2 MG PO (17:05)
[2017-05-04] MEDS ORDERED: DICYCLOMINE HYD20 MG PO (17:05)
[2017-05-04 17:36] VITALS: BP 108/62
== END 2017-05-04 17:38 | disposition home or self-care (01) ==
LOC: ER 14:49
PROVIDERS: Emergency Medicine
DX: A08.4 Viral intestinal infection, unspecified (principal); J45.909 Unspecified asthma, uncomplicated; F17.210 Nicotine dependence, cigarettes, uncomplicated; Z88.6 Allergy status to analgesic agent
CPT/HCPCS: J2405

== ENCOUNTER → 2017-06-07 | Emergency (ER) | payer SELFPAY ==
[~2017-06-07] VITALS: Ht 172.7 cm; Wt 59.0 kg
[~2017-06-07] MED LIST changes: +DICYCLOMINE HYD20 MG PO; +IMODIUM 2MG. CAP2 MG PO; +ZOFRAN ODT4 MG PO
[2017-06-07 08:08] VITALS: BP 108/71
--- NOTE | 2017-06-07 08:16 | Emergency Room Report ---
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 N Clinical Suspician of Infection? N Mental Status: 1 - Regular (Normal Baseline) Sepsis Risk:Low Sepsis Risk Have you (or family members/close friends) recently traveled outside the [place]? N If Yes, where/when: Have you had exposure to infectious disease within the past month? TB? Other? Specify: Source patient, RN notes reviewed, RN/MD Exam Limitations no limitations Comment This is a 26-year-old lady presenting to the emergency room with a sore on her RIGHT labia for the past 4-5 days. ALLERGIES Coded Allergies: tramadol (Mild, ITCHING 06/07/17) codeine (06/07/17) ketorolac (From TORADOL) (06/07/17) Home Medications Active Scripts Ondansetron (Zofran 4MG Odt) 4 MG PO Q8HP PRN NAUSEA AND VOMITING #10 ODT Prov: 05/04/17 Loperamide Hcl (Loperamide) 2 MG PO Q6HP PRN DIARRHEA #10 CAP Prov: 05/04/17 Dicyclomine Hcl (Bentyl 20mg Tab (Generic)) 20 MG PO TIDP PRN abdominal pain #10 TAB Prov: 05/04/17 History Medical History General CAD? No Angina: No [place]: No Hypertension? No Hyperlipidemia? No CHF? No DVT? No PE? No COPD? No Asthma? Yes Anemia? No GERD? No Gastric ulcers? No GI Bleed? No Hernia? No Thyroid Problems? No Hypothyroidism? No CVA? No Seizures? No Diabetes? No Renal Insuffiency? No End Stage Renal Disease? No UTI? Yes Stones? Yes BPH? No GB Disease: No Nephritic Syndrome? No Asplenia? No Hepatitis? No Sickle Cell Disease? No Arthritis? No Migraines? No Cataracts? No Glaucoma? No MRSA? No HIV? No TB? No Anxiety? No Depression? No Cancer? No More? Yes Additional hx: ENDOMETRIOSIS Immunization Hx Ped.Immunizations UTD Yes DT/Tetanus Unknown Flu Refused Pneumonia Refuses Surgical Hx Previous Surgery?Y KIDNEY STONES REMOVED TUBUAL HYSTECTOMY MEDICAL DOCTOR NUCLEAR MEDICINE Hx LMP N/A Family History Family Hx Diabetes No CAD No Hypertension Yes Hyperlipidemia No Cancer No TB No Social History Smoking Hx Smoker: Current Every Day Smoker Tobacco: Yes Type Cigarettes Packs/day < 1 Pack Alcohol Alcohol: No Review of Systems All Other Systems Reviewed and Negative Genitourinary pain (RIGHT labial sore). Skin lumps (RIGHT labial boil) Physical Exam Vital Signs Vital Signs Date Time Temp Pulse Resp B/P Pulse O2 O2 Flow FiO2 Ox Delivery Rate 06/07 0818 97.1 83 16 108/71 99 06/07 0808 97.1 83 16 108/71 99 General Appearance normal appearance, WD/WN, mild distress Respiratory Status Yes: trachea midline, chest symmetrical, non tender chest. No: respiratory distress. Lung Sounds bilateral: normal breath sounds, lungs clear. 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 No Comment 0810-will start patient on oral antibiotics, as RIGHT labial abscesses appeared to be non-drainable at this time, advised patient to follow-up with her test engine mechanic for reevaluation within 2 days. Departure Departure Time of Disposition 0813 Disposition DC Home or Self Care(routine) Clinical Impression Primary Impression: Labial abscess Condition STABLE Referrals Lainey HERRERA,Jimmy Sosa: 2 Days-Call Office if not better Patient Instructions DI for Skin Abscess Additional Instructions Please take the mediccations prescribed as directed, follow up with Dr Retana if not better within 2 days. Discharge Counseling Counseled pt/family regarding diagnosis, test results Comment Please take the mediccations prescribed as directed, follow up with Dr Retana if not better within 2 days. Prescriptions Current Visit Scripts SULFAMETHOXAZOLE W/TRIMETHOPRI (Bactrim Ds Tab) 1 TABLET PO BID #20 TAB ED Critical Care Critical Care No at [id number]
--- NOTE | 2017-06-07 08:16 | Emergency Room Report ---
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 N Clinical Suspician of Infection? N Mental Status: 1 - Regular (Normal Baseline) Sepsis Risk:Low Sepsis Risk Have you (or family members/close friends) recently traveled outside the [place]? N If Yes, where/when: Have you had exposure to infectious disease within the past month? TB? Other? Specify: Source patient, RN notes reviewed, RN/MD Exam Limitations no limitations Comment This is a 26-year-old lady presenting to the emergency room with a sore on her RIGHT labia for the past 4-5 days. ALLERGIES Coded Allergies: tramadol (Mild, ITCHING 06/07/17) codeine (06/07/17) ketorolac (From TORADOL) (06/07/17) Home Medications Active Scripts Ondansetron (Zofran 4MG Odt) 4 MG PO Q8HP PRN NAUSEA AND VOMITING #10 ODT Prov: 05/04/17 Loperamide Hcl (Loperamide) 2 MG PO Q6HP PRN DIARRHEA #10 CAP Prov: 05/04/17 Dicyclomine Hcl (Bentyl 20mg Tab (Generic)) 20 MG PO TIDP PRN abdominal pain #10 TAB Prov: 05/04/17 History Medical History General CAD? No Angina: No [place]: No Hypertension? No Hyperlipidemia? No CHF? No DVT? No PE? No COPD? No Asthma? Yes Anemia? No GERD? No Gastric ulcers? No GI Bleed? No Hernia? No Thyroid Problems? No Hypothyroidism? No CVA? No Seizures? No Diabetes? No Renal Insuffiency? No End Stage Renal Disease? No UTI? Yes Stones? Yes BPH? No GB Disease: No Nephritic Syndrome? No Asplenia? No Hepatitis? No Sickle Cell Disease? No Arthritis? No Migraines? No Cataracts? No Glaucoma? No MRSA? No HIV? No TB? No Anxiety? No Depression? No Cancer? No More? 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 Skin lumps (RIGHT labial boil) Physical Exam Vital Signs Vital Signs Date Time Temp Pulse Resp B/P Pulse O2 O2 Flow FiO2 Ox Delivery Rate 06/07 0818 97.1 83 16 108/71 99 06/07 0808 97.1 83 16 108/71 99 General Appearance normal appearance, WD/WN, mild distress Respiratory Status Yes: trachea midline, chest symmetrical, non tender chest. No: respiratory distress. Lung Sounds bilateral: normal breath sounds, lungs clear. 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 No Comment 0810-will start patient on oral antibiotics, as RIGHT labial abscesses appeared to be non-drainable at this time, advised patient to follow-up with her ict developer for reevaluation within 2 days. Departure Departure Time of Disposition 0813 Disposition DC Home or Self Care(routine) Clinical Impression Primary Impression: Labial abscess Condition STABLE Referrals Lainey HERRERA,Jimmy Sosa: 2 Days-Call Office if not better Patient Instructions DI for Skin Abscess Additional Instructions Please take the mediccations prescribed as directed, follow up with Dr Retana if not better within 2 days. Discharge Counseling Counseled pt/family regarding diagnosis, test results Comment Please take the mediccations prescribed as directed, follow up with Dr Retana if not better within 2 days. Prescriptions Current Visit Scripts SULFAMETHOXAZOLE W/TRIMETHOPRI (Bactrim Ds Tab) 1 TABLET PO BID #20 TAB ED Critical Care Critical Care No at 171
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
--- OUTSIDE RECORDS SUMMARY | 2017-06-07 08:26 | External Medical Summary Rpt | CCD ---
Author Author , BESS Organization BESS Address Unknown Phone [email or web address] Purpose Continuity of Care Document - 04-13-2017 [...] CLEAR L ed nce 16:45 determi [facility] [place] Urine 9-analyte drugs of abuse screening (05-04-2017 [...] SQUARE METERS Comment: If this patient is -[place], then multiply the Comment: result by 1.210. [...] blood 15:21 platele t mean volume wendie Whitfield % = 7.9 % 1.7-9.3 complet 017 [...]
--- OUTSIDE RECORDS SUMMARY | 2017-06-07 08:29 | External Medical Summary Rpt | CCD ---
Author Author , BESS Organization BESS Address Unknown Phone [email or web address] Care Team Providers Care Watch And Clock Repairer Name Role Phone ARECHIGA BLADIMIR, ARECHIGA Unavailable Unavailable BLADIMIR ALFARIS MOH, ALFARIS Unavailable Unavailable MOH ALFARIS MOH, ALFARIS Unavailable Unavailable [facility] Unavailable Unavailable [facility], [facility] SALENA STA, SALENA Unavailable Unavailable STA BEINEKE D, BEINEKE D Unavailable Unavailable [facility]available [facility]available [facility], [facility] Unavailable Unavailable [facility], [facility] GAMBINO, GAMBINO Unavailable Unavailable GAMBINO ALL, GAMBINO ALL Unavailable Unavailable JOCY, JOCY Unavailable Unavailable SQUIRES, SQUIRES Unavailable Unavailable SQUIRES MIKE, SQUIRES Unavailable Unavailable MIKE SQUIRESRYANK J, Unavailable Unavailable [facility] Un[facility]available [facility], [facility] Unavailable Unavailable [facility], [facility] RULA, RULA Unavailable Unavailable RULA DOUGLAS, Unavailable Unavailable RULA DOUGLAS DOBAY, III, DOBAY, Unavailable Unavailable III FEEBACK, FEEBACK Unavailable Unavailable FRYMAN EUG, FRYMAN Unavailable Unavailable JR IVAN WALLER, Unavailable Unavailable JR IVAN GARCIA GINGER, GINGER Unavailable Unavailable GINGER RENEE, GINGER Unavailable Unavailable [facility], [facility] ARON BENEDICT MD, Unavailable Unavailable ARON BENEDICT MD HARPEL, HARPEL Unavailable Unavailable HARPEL MARILY, HARPEL Unavailable Unavailable MARILY HARPEL MARILY, HARPEL Unavailable Unavailable MARILY [facility] Un[facility], [facility] Un[facility] Unavailable [facility], Unavailable Unavailable [facility] DIANA HICKMAN Unavailable Unavailable [facility] CALERO JANEE, CALERO Unavailable Unavailable JANEE [facility]available [facility]available [facility], [facility] RENUSCH, RENUSCH Unavailable Unavailable RENUSCH HAILY, RENUSCH Unavailable Unavailable [facility] Un[facility] SOTINGEANU JUAN, Unavailable Unavailable [facility] Unavailable Unavailable EM[facility], [facility], Unavailable Unavailable [facility] MELANIE OZUNA Unavailable Unavailable MELANIE SHANKAR Unavailable Unavailable QUINN LOCKE Unavailable Unavailable QUINN COLLIER Unavailable Unavailable IAN WALKER FOR, WALKER Unavailable Unavailable FOR Purpose Continuity of Care Document - 08-01-2007 through 2016 Problems Code Diagnosis DOS Provider Status M542 CERVICALGIA 02-14-2017 [facility] X20271 PAIN IN 02-14-2017 [facility] R51 HEADACHE 02-14-2017 [facility] R102 PELVIC AND 11-17-2016 [facility] PERINEAL PHYSICIANS PAIN GROUP R109 UNSPECIFIED 11-17-2016 [facility] ABDOMINAL PHYSICIANS PAIN GROUP L13006 HALFWAY 11-17-2016 [facility] CURRENT USE PHYSICIANS OF OPIATE GROUP ANALGESIC G8918 OTHER ACUTE 09-07-2016 [facility] PHYSICIANS POSTPROCEDU GROUP RAL PAIN M545 LOW BACK 09-07-2016 [facility] PAIN PHYSICIANS GROUP Z55450 OTHER LONG 09-07-2016 [facility] TERM PHYSICIANS CURRENT GROUP DRUG THERAPY K5900 CONSTIPATIO 09-03-2016 [facility] N [facility], UNSPECIFIED PLLC F89251 PAIN IN 09-03-2016 [facility] FOOT [facility], [facility] U3718BQ CONTUSION 09-03-2016 [facility] OF RIGHT PHYSICIANS, FOOT PLLC INITIAL ENCOUNTER F34926R UNSPECIFIED 09-03-2016 [facility] INITIAL ENCOUNTER N803 ENDOMETRIOS 08-31-2016 [facility] PELVIC PERITONEUM N736 FEMALE 08-19-2016 [facility] PELVIC PHYSICIANS PERITONEAL GROUP ADHESIONS POSTINFECTI VE N945 SECONDARY 08-19-2016 [facility] DYSMENORRHE PHYSICIANS A GROUP R110 NAUSEA 07-21-2016 [facility] N809 ENDOMETRIOS 07-17-2016 [facility] IS PHYS[facility]IANS, UNSPECIFIED PLLC R1030 LOWER 07-17-2016 [facility] ABDOMINAL PHYSICIANS, PAIN PLLC UNSPECIFIED Z302 ENCOUNTER 06-02-2016 [facility] FOR PHYSICIAN STERILIVENICE GROUP ON Z3009 ENCOUNTER 05-11-2016 [facility] OT GENERAL PHYSICIANS GROUP FIBERGLASS TECHNICIAN&ADV ICE CONTRACEPT N8301 FOLLICULAR 05-01-2016 [facility] CYST OF [facility] RIGHT OVARY IMAGING ASS N8302 FOLLICULAR 05-01-2016 [facility]ICAL LEFT OVARY IMAGING ASS N920 EXCESS & 05-01-2016 [facility] FREQUENT [facility] MENSTRUATIO IMAGING ASS N W/REGULAR CYCLE N9489 OTH COND 04-28-2016 [facility] W/FE PHYSICIANS GEN ORGN & GROUP MENSTRUAL CYCL Z26265 PAIN IN 04-05-2016 [facility] R200 ANESTHESIA 04-05-2016 [facility] SKIN [facility] H[facility]PITA Z5320 PROC & TX 04-05-2016 [facility] NOT CARRIED COMMUNTI[facility] OUT HOSPITA PATIENTS UNS REASON Z720 TOBACCO USE 04-05-2016 [facility] H6002 ABSCESS OF 01-19-2016 [facility] LEFT PHYSIC[facility], EXTERNAL PLLC EAR J029 ACUTE 01-19-2016 [facility] PHARYNGITIS [facility]IANS, PLLC UNSPECIFIED R1031 RIGHT LOWER 10-31-2015 [facility] QUADRANT [facility], PAIN PLLC Z309 ENCOUNTER 08-22-2015 ARON BENEDICT MD CONTRACEPTI VE MANAGEMENT UNS N10 ACUTE 05-10-2015 [facility] TIS INC N12 TUBULO-INTE 05-10-2015 [facility] RST PHYSICIANS, NEPHRITIS PLLC NOT SPEC ACUTE/CHRON N200 CALCULUS OF 05-03-2015 [facility] N390 URINARY 05-03-2015 ARON Urbina TRACT [facility] HERRERA INFECTION SITE NOT SPECIFIED R319 HEMATURIA 05-03-2015 ARON Urbina UNSPECIFIED [facility] HERRERA N8320 UNSPECIFIED 05-02-2015 [facility] OVARIAN [facility] CYSTS IM[facility]ING ASS R95334 PERSONAL 04-15-2015 [facility] HISTORY OF MEDICAL URINARY IMAGING ASS CALCULI B9620 UNS E COLI 04-14-2015 [facility] CAUSE DZ INC CLASS ELSEWHERE 7242 LUMBAGO 03-15-2015 [facility] INC V571 OTHER 03-15-2015 [facility] THERAPY INC V242 ROUTINE 02-25-2015 [facility] FOLLOW-UP LABORATORIE S V2509 OT GENERAL 02-25-2015 ARON BENEDICT MD CNSL&ADVICE CONTRACEPT MANAGEMENT 5921 CALCULUS OF 01-17-2015 [facility] 591 HYDRONEPHRO 01-11-2015 [facility]IS [facility] 6212 HYPERTROPHY 01-11-2015 [facility] MEDICAL IM[facility] ASS 64341 UNSPECIFIED 01-09-2015 [facility] RENAL PHYSICIANS DISEASE GROUP W/DELIVERY 15573 C/S DELIV 01-09-2015 COMMUNITY W/O INDICAT ANESTH OF DELIV W/WO THE BLUE ANTPRTM COND V270 OUTCOME OF 01-09-2015 [facility] DELIVERY PHYSICIANS SINGLE GROUP LIVEBORN 10682 HEMATURIA 01-07-2015 [facility]PEC[facility] 10039 OTHER SPEC 01-07-2015 [facility] N INC W/DELIVERY 37763 OTHER 01-07-2015 [facility] SPECIFED [facility] COMPLICATIO IMAGING ASS N ANTEPARTUM 45872 ABDOMINAL 01-07-2015 [facility] PAIN, MEDICAL UNSPECIFIED IMAGING ASS SITE V221 SUPERVISION 01-01-2015 ARON BENEDICT MD NORMAL 3829 UNSPECIFIED 12-27-2014 [facility] OTITIS PHYSICIANS MEDIA GROUP 470 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 SEPTUM GROUP 4720 CHRONIC 12-27-2014 [facility] RHINITIS PHYSICIANS GROUP 24112 OTHER 12-25-2014 ARON BENEDICT MD LABOR, ANTEPARTUM 73051 UNSPECIFIED 12-17-2014 [facility] INFECTIVE PHYSICIANS OTITIS GROUP EXTERNA 5990 URINARY 12-17-2014 ARON BENEDICT MD INFECTION SITE NOT SPECIFIED V222 12-17-2014 [facility] STATE, PHYSICIANS INCIDENTAL GROUP V286 SCREENING 12-17-2014 [facility] STREPTOCOCC INC US B V771 SCREENING 10-31-2014 [facility] DIABETES INC MELLITUS 88247 UNSPECIFIED 10-29-2014 ARON Urbina VAGINITIS MAR[facility] HERRERA AND VULVOVAGINI TIS 99391 INFECTIONS 10-02-2014 [facility] GENITOURINA RY TRACT ANTEPARTUM 03331 THREATENED 09-12-2014 [facility] PREMATURE PHYSICIANS LABOR GROUP ANTEPARTUM 7965 ABNORMAL 09-04-2014 [facility] SCREEN[facility] V2889 OTHER 08-20-2014 [facility] INC SCREENING 24407 OTHER 06-15-2014 ARON Urbina SPECIFIED [facility] HERRERA DISEASES DUE TO CHLAMYDIAE 1121 CANDIDIASIS 06-15-2014 ARON Urbina OF VULVA [facility] HERRERA AND VAGINA 6268 OTH D/O 05-29-2014 ARON Urbina MENSTRUATIO [facility] HERRERA N&OTH ABN BLEED FE GNT TRACT V7231 ROUTINE 05-29-2014 ARON Urbina GYNECOLOGIC [facility] HERRERA AL EXAMINATION 33122 UNSPECIFIED 02-22-2014 [facility] TRICHOMONIA SIS 490 BRONCHITIS 02-22-2014 [facility] NOT N EMERGENCY SPECIFIED PHYS ACUTE OR CHRONIC 38143 FEVER 02-22-2014 [facility] UNSPECIFIED N EMERGENCY PHYS 7862 COUGH 02-22-2014 [facility] 8472 LUMBAR 01-10-[address] [facility] SPRAIN AND STRAIN E9289 UNSPECIFIED 01-10-[address] 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 V704 EXAMINATION 09-01-2013 [facility]ILY FOR MEDICOLEGAL REASON V2543 SURVEILLANC 09-21-2007 [facility] [place] CONTRACEPT [facility] V255 INSERTION 08-15-2007 [facility] [place] CONTRACEPTI [facility] VE Medications Na ND Rx Da Fi Fi Am Da Di Ph RX Ph St me C No te ll ll ou ys ag ar # ys at rm s nt no ma ic us Or Da si cy ia de te s n re d DI 61 08 09 60 30 00 HO Ac CL 44 -2 -1 .0 00 ME ti OF 20 1- 5- 06 TO ve EN 10 20 20 09 WN AC 20 17 17 27 1 23 PH SO AR D MA DR REILLY 50 OF MG CY NT TA HI B AN A ME 00 08 09 60 30 00 HO Ac TH 14 -2 -1 .0 00 ME ti OC 31 1- 5- 00 06 TO ve AR 29 20 20 09 WN BA 00 17 17 27 MO 1 24 PH L AR 50 MA 0 CY MG OF TA BL CY ET NT HI AN A OX 65 05 06 6. 2 00 HO Ac YC 16 -0 -0 00 00 ME ti OD 20 9- 2- 0 02 TO ve ON 20 20 20 01 WN -A 75 17 17 36 CE 0 11 PH TA AR DC MA NO CY PH EN OF 7. CY 5- NT 32 HI 5 AN A OX 65 05 05 12 3 00 HO Ac YC 16 -0 -2 .0 00 ME ti OD 20 3- 6- 00 02 TO ve ON 20 20 20 01 WN -A 75 17 17 35 CE 0 59 PH TA AR DC MA NO CY PH EN OF 7. CY 5- NT 32 HI 5 AN A BOWDEN 53 05 05 21 7 00 HO Ac LF 74 -0 -2 .0 00 ME ti AM 60 3- 6- 00 06 TO ve ET 27 20 20 08 WN HO 20 17 17 63 XA 5 58 PH ZO AR LE MA -T CY MP OF DS CY TA NT BL HI ET AN A BOWDEN 53 04 05 21 7 00 HO Ac LF 74 -1 -1 .0 00 ME ti AM 60 7- 2- 00 06 TO ve ET 27 20 20 08 WN HO 20 17 17 52 XA 5 39 PH ZO AR LE MA -T CY MP OF DS CY TA NT BL HI ET AN A OX 65 04 05 12 3 00 HO Ac YC 16 -1 -1 .0 00 ME ti OD 20 9- 2- 00 02 TO ve ON 20 20 20 01 WN -A 75 17 17 34 CE 0 49 PH TA AR DC MA NO CY PH EN OF 7. CY 5- NT 32 HI 5 AN A HY 42 03 04 [address] 85 -1 -0 .0 00 ME ti OM 80 3- 7- 00 02 TO ve OR 30 20 20 01 WN PH 20 17 17 31 ON 1 45 PH E AR 4 MA MG CY TA OF BL ET CY NT HI AN A IB 53 03 03 40 10 00 HO Ac UP 74 -0 -3 .0 00 ME ti RO 60 7- 1- 00 06 TO ve FE 46 20 20 08 WN N 40 17 17 27 40 5 35 PH 0 AR MG MA CY TA BL OF ET CY NT HI AN A HY 42 03 03 [address] 85 -0 -3 .0 00 ME ti OM 80 7- 1- 00 02 TO ve OR 30 20 20 01 WN PH 10 17 17 30 ON 1 81 PH E AR 2 MA MG CY TA OF BL ET CY NT HI AN A HY 00 02 03 [address] 60 -1 -1 .0 00 ME ti OC 33 3- 0- 00 02 TO ve OD 89 20 20 01 WN ON 12 17 17 28 -A 8 86 PH CE AR TA MA DC CY NO PH OF 7. CY 5- NT 32 HI 5 AN A NA 68 01 02 14 7 00 HO Ac WI 46 -2 -1 .0 00 ME ti OX 20 3- 7- 00 06 TO ve EN 19 20 20 07 WN 00 17 17 99 50 5 68 PH 0 AR MG MA CY TA BL OF ET CY NT HI AN A PO 62 01 02 52 30 00 HO Ac LY 17 -2 -1 7. 00 ME ti ET 50 3- 7- 00 06 TO ve HY 44 20 20 0 08 WN LE 23 17 17 00 NE 1 17 PH AR GL MA YC CY OL OF 33 50 CY NT PO HI WD AN A WI 00 01 02 30 10 00 HO Ac OM 60 -2 -1 .0 00 ME ti ET 35 4- 7- 00 06 TO ve BELLA 43 20 20 08 WN ZI 83 17 17 01 NE 0 13 PH AR 25 MA CY MG OF TA BL CY ET NT HI AN A HY 00 01 02 [address] 60 -2 -1 .0 00 ME ti OC 33 4- 7- 00 02 TO ve OD 89 20 20 01 WN ON 12 17 17 26 -A 8 84 PH CE AR TA MA DC CY NO PH OF 7. CY 5- NT 32 HI 5 AN A BI 00 12 01 12 12 00 HO Ac SC 90 -0 -0 .0 00 ME ti OL 45 8- 9- 00 06 TO ve AX 05 20 20 07 WN 81 16 17 71 10 2 09 PH AR MG MA CY BOWDEN PP OF OS IT CY OR NT Y HI AN A 63 03 04 00 20 10 CL 16 No Ac 30 -3 -1 .0 IN 79 t ti 40 1- 0- 00 IC 16 Av ve 51 20 20 ai 80 08 08 PH la 1 AR bl MA e CY 00 02 03 00 6. 2 CL 16 No Ac 40 -1 -2 00 IN 50 t ti 60 8- 6- 0 IC 42 Av ve 35 20 20 ai 70 08 08 PH la 5 AR bl MA e CY Procedures Procedure [place] [address] [facility] CERVICAL 7 MEDICAL SPINE W/[place] [address] [facility] HEAD/BRAI 7 MEDICAL MEDICAL N W/O IMAGING IMAGING CONTRAST ASS ASS MATERIAL RADIOLOGI 20870 [facility] C 7 MEDICAL MEDICAL EXAMINATI IMAGING IMAGING ON TIBIA ASS ASS & FIBULA 2 VIEWS DRUG TEST 32870 [facility] PRSMV 7 PHYSICIAN PHYSICIAN QUAL DIR S GROUP S GROUP OPTICAL OBS PER DAY RADEX 36462 [facility] FOOT 7 MEDICAL COMPLETE IMAGING MINIMUM 3 [place] [address] [facility] JOCY SURG 7 [facility] PATHOLOGY GROSS&RENEE ROSCOPIC EXAM ANESTHESI 86312 [facility] A VAGINAL 7 ANESTH OF THE HYSTERECT BLUE TANO INCL BIOPSY LAPS 20628 [facility] SQUIRES W/VAG 7 PHYSICIAN HYSTERECT GROUP 250 GM/&RMVL TUBE&/OVA HENRY URNLS DIP 79196 [facility] SQUIRES 7 PHYSICIAN STICK/TAB S GROUP LET RGNT NON-AUTO W/O MICRSCP LAPAROSCO 29154 [facility] PY 6 PHYSICIAN FULGURATI GROUP ON OVIDUCTS ANES IPER 31507 COMMUNITY FEEBACK LWR ABD 6 ANESTH W/LAPS OF THE TUBAL BLUE LIGATION/ [place] [address] [place] [facility] TRANSVAGI 6 MEDICAL DOUGLAS NAL IMAGING ASS HGB 37829 [facility] QUANTITAT 6 PHYSICIAN MARILY MICHAEL S GROUP TRANSCUTA NEOUS URINLS 31864 [facility]ON BENEDICT DIP 6 [facility] [place] STICK/[place] [address] [facility] [facility] ALL ABDOMEN & 6 MEDICAL PELVIS IMAGING W/CONTRAS ASS T MATERIAL REMOVAL 56483 ARON BENEDICT IMPLANTAB 6 [facility] [place] LE CONTRACEP TIVE CAPSULES SURGICAL A4550 ARON BENEDICT TRAYS 6 [facility] CAL[place] URNLS DIP 39562 [facility] STICK/TAB INC INC LET REAGENT AUTO MICROSCOP Y BLOOD 80891 [facility] COUNT 5 [facility] COMPLETE INC INC AUTO&AUTO DIFRNTL WBC SUSCEPTIB 31135 [facility] LTY STDY 5 [facility] ANTIMICRB INC INC IAL MICRO/AGA R DILUTJ URINE 87842 [facility] TEST INC INC VISUAL COLOR CMPRSN METHS CULTURE 34265 [facility] BACTERIAL 5 [facility] INC INC QUANTTATI VE COLONY COUNT URINE CULTURE 38155 [facility] BCT 5 [facility] ISOL&PRSM INC INC PTV ID ISOLATE EA URINE COMPREHEN 07625 [facility] SIVE 5 [facility] METABOLIC INC INC PANEL URINLS 91790 ARON ODONNELLL DIP 5 [facility] HERRERA MARILY STICK/TAB LET REAGNT NON-AUTO MICRSCPY URINE 52346 RAON BENEDICT 5 [facility] MARILY [place] [address] [place] [facility] ALL ABDOMEN & 5 MEDICAL PELVIS IMAGING W/[place] [address] [facility] TRANSVAGI 5 [facility] NAL INC INC COLLECTIO 18346 [facility] N VENOUS 5 [facility] BLOOD INC INC VENIPUNCT URE OBSERVATI 75119 [facility]CILLA ON CARE 5 [facility] MANAGEMEN T COMPREHEN 87571 [facility] SIVE 5 [facility] METABOLIC INC INC PANEL HOSPITAL G0378 [facility] OBSERVATI 5 [facility] ON INC INC SERVICE PER HOUR BLOOD 83138 [facility] COUNT 5 [facility] COMPLETE INC INC AUTO&AUTO DIFRNTL WBC BLOOD 16573 [facility] COUNT 5 [facility] COMPLETE INC INC AUTO&[place] [address] [facility] ABDOMEN & 5 [facility] PELVIS INC INC W/O CONTRAST MATERIAL HOSPITAL G0378 [facility] OBSERVATI 5 [facility] ON INC INC SERVICE PER HOUR BASIC 66046 [facility] METABOLIC 5 [facility] PANEL INC INC CALCIUM TOTAL COLLECTIO 92824 [facility] N VENOUS 5 [facility] BLOOD INC INC VENIPUNCT URE SBSQ 15157 [facility] OBSERVATI 5 [facility] CARE/DAY 15 MINUTES URINE 56685 [facility] TEST INC INC VISUAL COLOR CMPRSN METHS CUL BACT 51608 [facility] AEROBIC 5 [facility] ADDL INC INC METHS DEFINITIV E EA ISOL CULTURE 79129 [facility] BACTERIAL 5 [facility] INC [place] [address] [facility] INFUSION 5 [facility] THER INC INC PROPH ADDL SEQUENTIA L TO 1 HR COMPREHEN 77501 [facility] SIVE 5 [facility] METABOLIC INC INC PANEL IAADI 08270 [facility] INFLUENZA 5 [facility] B VIRUS INC INC IAADI 54400 [facility] INFFLUENZ 5 [facility] A A VIRUS INC INC BLOOD 22017 [facility] COUNT 5 [facility] COMPLETE INC INC AUTO&AUTO DIFRNTL WBC URNLS DIP 08283 [facility] STICK/TAB INC INC LET REAGENT AUTO MICROSCOP Y INITIAL 08524 [facility]A OBSERVATI 5 [facility] CARE/DAY 30 MINUTES SUSCEPTIB 85767 [facility] LTY STDY 5 [facility] ANTIMICRB INC INC IAL MICRO/[place] [address] [facility] INFUSION 5 [facility] THERAPY/P INC INC ROPHYLAXI S /DX 1ST TO 1 HR E-STIM G0283 [facility] 1/> AREAS 5 [facility] OTH THAN INC INC WND CARE PART TX PLAN THERAPEUT 11062 [facility] IC PX 1/> 5 [facility] AREAS INC INC EACH 15 MIN EXERCISES APPLICATI 00704 [facility] ON 5 [facility] MODALITY INC INC 1/> AREAS HOT/COLD PACKS THERAPEUT 95321 [facility] IC PX 1/> 5 [facility] AREAS INC INC EACH 15 MIN EXERCISES APPLICATI 94539 [facility] ON 5 [facility] MODALITY INC INC 1/> AREAS HOT/COLD PACKS E-STIM G0283 [facility] 1/> AREAS 5 [facility] OTH THAN INC INC WND CARE PART TX PLAN PHYSICAL 07789 [facility] THERAPY 5 [facility] EVALUATIO INC INC N URINE 07409 ARON Urbina 5 [facility] BENEDICT MD TEST VISUAL COLOR CMPRSN METHS INSJ 58328 ARON BENEDICT NON-BIODE 5 [facility] CALIXTO GRADABLE DRUG DELIVERY IMPLANT CYTP C/V 00189 BIO BIO AUTO THIN 5 REFERNCE REFERNCE LYR LABORATOR LABORATOR PREPJ SCR IES IES MNL RESCR PHYS ETONOGEST J7307 [facility] 5 [facility] HERRERA MARILY CNTRACPT IMPL SYS INCL IMPL & SPL ANES 27652 ANESTHESI [facility] TRURL 5 A STA FRAGMNTJ ASSOCIATE MANJ&/RMV S PSC L URETERAL CALCULUS URNLS DIP 00653 [facility] ARECHIGA 5 [facility] LET RGNT P NON-AUTO W/[place] [address] [place] [facility] ALL ABDOMEN & 5 MEDICAL PELVIS IMAGING W/O ASS CONTRST 1/> [place] [address] [facility] SQUIRES DELIVERY 5 PHYSICIAN MIKE ONLY S GROUP ANESTHESI 58445 [facility] A 5 ANESTH IAN OF THE DELIVERY BLUE ONLY LOW 741 [facility] CERVICAL 5 [facility] INC INC SECTION 05860 [facility] Urb[facility] DELIVERY 5 [facility] SANCHES W/POSTPAR ROMEO CARE SBSQ 16496 ARON Urbina [facility] 5 [facility] MD MARILY CARE/DAY 25 MINUTES 74324 [facility] BIOPHYSIC 5 MEDICAL DOUGLAS AL IMAGING PROFILE ASS W/[place] [address] [facility] RETROPERI 5 MEDICAL DOUGLAS TONEAL IMAGING REAL TIME ASS W/IMAGE LIMITED US PREG 74737 [facility] UTERUS 5 MEDICAL DOUGLAS REAL TIME IMAGING F/U ASS TRNSABDL PER FETUS INITIAL 80655 [facility] 5 [facility] HERRERA MARILY CARE/DAY 50 MINUTES 23811 ARON BENEDICT NONSTRESS 5 [place] [address] [facility] INFUSION 5 [facility] THERAPY/P INC INC ROPHYLAXI S /DX 1ST TO 1 HR URNLS DIP 50582 [facility] STICK/TAB INC INC LET REAGENT AUTO MICROSCOP Y 05370 [facility] NONSTRESS 5 [facility] TEST INC INC EVAL C/V 62839 [facility] AMNIOTIC 5 [facility] FLUID INC INC PROTEIN QUAL EA SPECIMEN 82947 ARON BENEDICT NONSTRESS 5 [facility] HERRERA MARILY TEST CUL 19112 ARON BENEDICT PRSMPTV 5 [facility] PTHGNC ORGANISM SCRN W/COLONY ESTIMJ PARTICLE 40895 [facility] AGGLUTINA 5 [facility] TION INC INC SCREEN EACH ANTIBODY GLUCOSE 31319 [facility] POST 5 [facility] GLUCOSE INC INC DOSE COLLECTIO 13243 [facility] N VENOUS 5 [facility] BLOOD INC INC VENIPUNCT URE SMR PRIM 85899 ARON BENEDICT SRC WET 5 [facility] NFCT AGT SMR PRIM 04431 ARON BENEDICT SRC WET 5 [facility]ERR[facility] SPALDING AGT CULTURE [id number] ISOL&PRSM PTV ID ISOLATE EA URINE CULTURE 92461 [facility] BACTERIAL [address] [place] [address] QUANTTATI VE COLONY COUNT URINE SUSCEPTIB 22262 [facility] LTY STDY [address] [place] [address] ANTIMICRB IAL MICRO/AGA R DILUTJ 46245 [facility] SQUIRES NONSTRESS 5 PHYSICIAN MIKE TEST S GROUP 51866 [employer]M CHROMOSOM 5 [facility] FOR FOR ANEUPLOID MOLECULA MOLECULA Y GENOMIC SEQ ANALYS COLLECTIO 65645 [facility] N VENOUS [address] [place] [address] BLOOD VENIPUNCT URE US PREG 20399 ARON BENEDICT UTERUS 5 MAR[facility]UY [place] AFTER 1ST TRIMEST GESTATION ALPHA-FET 31988 [facility] OPROTEIN 5 [facility] SERUM INC INC COLLECTIO 43608 [facility] N VENOUS 5 [facility] BLOOD INC INC VENIPUNCT URE GONADOTRO 02601 [facility] PIN 5 [facility] CHORIONIC [place] [address] [facility] ESTRIOL 5 [facility] INC INC CULTURE 69774 ARON BENEDICT CHLAMYDIA 4 [facility]Y [facility]ERR[facility] MARILY ANY SOURCE IADNA 42868 BIO BIO TRICHOMON 4 REFERNCE REFERNCE LABORATOR LABORATOR VAGINALIS IES IES AMPLIFIED PROBE TECH IAADIADOO 99854 ARON BENEDICT 4 MARICHUY CALIXTO TRICHOMON VAGINALIS IADNA 06745 ARON BENEDICT NEISSERIA 4 [facility]ERRER[facility] MARILY GONORRHOE AE DIRECT PROBE TQ IADNA 20074 BIO BIO NEISSERIA 4 REFERNCE REFERNCE LABORATOR LABORATOR GONORRHOE IES IES AE AMPLIFIED PROBE TQ IADNA NOS 82576 BIO BIO 4 REFERNCE REFERNCE AMPLIFIED LABORATOR LABORATOR PROBE TQ IES IES EACH ORGANISM IADNA 22145 ARON BENEDICT HERPES 4 MAR[facility] CALIXTO SIMPLX VIRUS DIRECT PROBE TQ IADNA 90833 BIO BIO CHLAMYDIA 4 REFERNCE REFERNCE LABORATOR LABORATOR TRACHOMAT IES IES IS AMPLIFIED [place] PREG 51715 ARON R OLIVERPEL UTERUS 4 MAR[facility]UY HERRERA MARILY REAL TIME W/IMAGE DCMTN TRANSVAG IADNA 62271 ARON R HARPEL HERPES 4 [facility] MARILY SIMPLX VIRUS DIRECT PROBE TQ URINLS 77157 ARON R HARPEL DIP 4 [facility] MARILY STICK/TAB LET REAGNT NON-AUTO MICRSCPY URINE 99058 ARON BOYDPEL 4 [facility] MARILY TEST VISUAL COLOR CMPRSN METHS IAADIADOO 56244 ARON R ARON R 4 MARICHUY BENEDICT MD TRICHOMON VAGINALIS IADNA 11832 ARON BOYDPEL NEISSERIA 4 [facility]Y HERRER[facility] MARILY GONORRHOE AE DIRECT PROBE TQ CULTURE 10448 ARON BOYDPEL CHLAMYDIA 4 [facility] HERRERA MARILY ANY SOURCE RADIOLOGI 28168 [facility] D C EXAM 4 MEDICAL CHEST 2 IMAGING VIEWS ASS FRONTAL&L ATERAL CULTURE 23158 HARPEL HARPEL CHLAMYDIA 4 MARILY MARILY ANY SOURCE IAADIADOO 16776 HARPEL HARPEL 4 MARILY MARILY TRICHOMON VAGINALIS IADNA 16586 HARPEL HARPEL HERPES 4 MARILY MARILY SIMPLX VIRUS DIRECT PROBE TQ IADNA 41549 HARPEL HARPEL NEISSERIA 4 MARILY MARILY GONORRHOE AE DIRECT PROBE TQ URINLS 55901 HARPE[facility] HARPEL DIP 4 MARILY MARILY STICK/TAB LET REAGNT NON-AUTO MICRSCPY SUSCEPTIB 20154 COMBINED COMBINED ILITY 8 PHYSICIAN PHYSICIAN STUDY S LAB S LAB ANTIMICRO BIAL DISK METHOD CULTURE 92615 COMBINED COMBINED BACTERIAL 8 PHYSICIAN PHYSICIAN S LAB S LAB QUANTTATI VE COLONY COUNT URINE ETONOGEST J7307 WOMEN'S SQUIRES, REL 8 [facility] [place] [facility] Encounters Encounter Start End Date Code Location Performer Type Date OFFICE 93333 [facility] GINGER OUTPATIEN 7 7 PHYSICIAN T VISIT S GROUP 15 MINUTES EMERGENCY 37857 IFEANYI ALCAZAR, 7 7 PHYSICIAN III DEPARTMEN S, PLLC T VISIT MODERATE SEVERITY OFFICE 84870 [facility] SQUIRES OUTPATIEN 7 7 PHYSICIAN T VISIT S GROUP 15 MINUTES OFFICE 61648 [facility] OUTPATIEN 7 7 PHYSICIAN T VISIT S GROUP 15 MINUTES OFFICE 43802 [facility] OUTPATIEN 7 7 PHYSICIAN T VISIT S GROUP 25 MINUTES EMERGENCY 36420 IFEANYI GINGER 7 7 PHYSICIAN DEPARTMEN S, PLLC T VISIT MODERATE SEVERITY OFFICE 16034 [facility] S[facility] OUTPATIEN 7 7 PHYSICIAN T VISIT S GROUP 25 MINUTES EMERGENCY 27529 IFEANYI AUGUSTIN 7 7 PHYSICIAN DEPARTMEN S, PLLC T VISIT MODERATE SEVERITY EMERGENCY 51652 IFEANYI DE LA FUENTE 6 6 PHYSICIAN DEPARTMEN S, PLLC T VISIT HIGH/URGE NT SEVERITY OFFICE 01478 [facility] HARPEL OUTPATIEN 6 6 PHYSICIAN MARILY T VISIT S GROUP 15 MINUTES OFFICE 63888 [facility] OUTPATIEN 6 6 PHYSICIAN MARILY T VISIT S GROUP 25 MINUTES [facility] - 6 6 N OUTPATIEN COMMUNTIY T HOSPITA EMERGENCY 48485 [facility] 6 6 N DEPARTMEN COMMUNTIY T VISIT HOSPITA LIMITED/M INOR PROB EMERGENCY 99019 IFEANYI AUGUSTIN 6 6 PHYSICIAN HAILY DEPARTMEN S, PLLC T VISIT MODERATE SEVERITY OFFICE 68757 [facility] BENEDICT OUTPATIEN 6 6 MARICHUY HERRERA MARILY T VISIT 5 MINUTES EMERGENCY 43798 IFEANYI GLEZ DEPT 6 6 PHYSICIAN U JUAN VISIT S, PLLC HIGH SEVERITY& THREAT FUNCJ OFFICE 73919 ARON BENEDICT OUTPATIEN 6 6 MARICHUY HERRERA MARILY T VISIT 25 MINUTES OFFICE 39028 [facility] BENEDICT OUTPATIEN 6 6 MARICHUY HERRERA MARILY T VISIT 5 MINUTES OFFICE 37452 ARON BENEDICT OUTPATIEN 6 6 MARICHUY HERRERA MARILY T VISIT 25 MINUTES [facility]OSPITAL [facility] - 5 5 [facility] OUTPATIEN INC T EMERGENCY 48935 [facility] 5 5 [facility] DEPARTMEN INC T VISIT LOW/MODER SEVERITY EMERGENCY 04592 IFEANYI BRADLEY 5 5 [facility]YSICIAN [facility] T VISIT HIGH/URGE NT SEVERITY HOSPITAL [facility] - 5 5 [facility] OUTPATIEN INC T OFFICE 38453 ARON BENEDICT OUTPATIEN 5 5 MARICHUY CALIXTO T VISIT 15 MINUTES HOSPITAL [facility] - 5 5 [facility] OUTPATIEN INC T OFFICE 41761 [facility] MANCILLA OUTPATIEN 5 5 [facility] HOSP[facility] 15 [facility] - 5 5 [facility] OUTPATIEN INC T EMERGENCY 33054 [facility] 5 5 [facility] DEPARTMEN INC T VISIT HIGH/URGE NT SEVERITY EMERGENCY 71143 IFEANYI MILES DEPT 5 5 PHYSICIAN RENEE VISIT [facility] HIGH SEVERITY& [facility] OUT[facility] INC T OFFICE 17834 [facility] GINGER OUTPATIEN 5 5 PHYSICIAN RENEE T VISIT S GROUP 10 MINUTES OFFICE 96640 NH[facility] ARECHIGA OUTPATIEN [address] NHI - 5 5 [facility] INPATIENT INC OFFICE 00154 ARON R HARPEL OUTPATIEN 5 5 MARICHUY CALIXTO T VISIT 15 MINUTES HOSPITAL [facility] - 5 5 [facility] OUTPATIEN INC T OFFICE 47673 ARON R HARPEL OUTPATIEN 5 5 MARICHUY CALIXTO T VISIT 15 MINUTES OFFICE 96904 [facility] CALERO OUTPATIEN 5 5 PHYSICIAN JANEE T NEW 30 S GROUP MINUTES OFFICE 54011 ARON R HARPEL OUTPATIEN 5 5 MARICHUY CALIXTO T VISIT 15 MINUTES EMERGENCY 24371 IFEANYI GARCIA, 5 5 PHYSICIAN JR IVAN LO S, [facility] T VISIT MODERATE SEVERITY HOSPITAL NHI - 5 5 [facility] OUTPATIEN INC T OFFICE 51938 [facility] GING[facility] OUTPATIEN 5 5 PHYSICIAN RENEE T VISIT S GROUP 10 MINUTES OFFICE 46088 ARON Urbina HARPEL OUTPATIEN 5 5 MARICHUY CALIXTO T VISIT 15 MINUTES OFFICE 25506 ARON Urbina HARPEL OUTPATIEN 5 5 MARICHUY CALIXTO T VISIT 15 MINUTES OFFICE 44123 ARON Urbina HARPEL OUTPATIEN 5 5 MARICHUY CALIXTO T VISIT 15 MINUTES HOSPITAL [facility] - 5 5 [facility] OUTPATIEN INC T OFFICE 58438 ARON Urbina HARPEL OUTPATIEN 5 5 MARICHUY CALIXTO T VISIT 15 MINUTES OFFICE 44031 ARON Urbina HARPEL OUTPATIEN 5 5 MARICHUY CALIXTO T VISIT 15 MINUTES HOSPITAL [facility] [address] [place] [address] [place] [address] H[facility]PITAL OFFICE 45414 ARON Urbina HARPEL OUTPATIEN 5 5 MARICHUY CALIXTO T VISIT 15 MINUTES OFFICE 39499 ARON ODONNELLL OUTPATIEN 5 5 MARICHUY HERRERA MARILY T VISIT 15 MINUTES [facility] NHI - 5 5 [facility] OUTPATIEN INC T OFFICE 10650 ARON BENEDICT OUTPATIEN 5 5 MARICHUY HERRERA MARILY T VISIT 15 MINUTES OFFICE 89041 ARON BENEDICT OUTPATIEN 5 5 MARICHUY HERRERA MARILY T VISIT 15 MINUTES OFFICE 91130 ARON ODONNELLL OUTPATIEN 4 4 MARICHUY HERRERA MARILY T VISIT 15 MINUTES OFFICE 05801 ARON BENEDICT OUTPATIEN 4 4 MARICHUY HERRERA MARILY T VISIT 15 MINUTES [facility] 77631 ARON BENEDICT PREVENTIV 4 4 MARICHUY HERRERA MARILY E MED EST PATIENT 18-39 YRS EMERGENCY 49026 [facility] [address] [facility] [facility] DEPARTMEN EMERGENCY T VISIT PHYS HIGH/URGE NT SEVERITY EMERGENCY 96606 ALFARIS ALFARIS 4 4 [facility] DEPARTMEN T VISIT MODERATE SEVERITY EMERGENCY 17064 MELANIE NAVARRO 4 4 RYA RYA DEPARTMEN T VISIT HIGH/URGE NT SEVERITY INITIAL 93182 MARICHUY BENEDICT PREVENTIV 4 4 MARILY MARILY E MEDICINE NEW PT AGE 18-39YRS PERIODIC 27088 [facility], PREVENTIV 8 8 HEALTH NENA J E MED EST CLINIC OF PATIENT 12-17YRS [facility] OFFICE 75877 [facility], OUTPATIEN 8 8 HEALTH NENA J T VISIT CLINIC OF 15 MINUTES [facility] OFFICE 43434 [facility]OM[facility], OUTPATIEN 8 8 [facility]ALTH NENA J T [facility]ES [facility]
--- OUTSIDE RECORDS SUMMARY | 2017-06-07 08:29 | External Medical Summary Rpt | CCD ---
Author Author , BESS Organization BESS Address Unknown Phone .PeopleString Care Team Providers Care Machine Driller Name Role Phone ARECHIGA BLADIMIR, ARECHIGA Unavailable [...] Unavailable GINGER RENEE, GINGER Unavailable Unavailable RENEE [facility] Unavailable Unavailable [facility], [facility] ARON BENEDICT MD, Unavailable Unavailable ARON BENEDICT MD HARPEL, HARPEL Unavailable Unavailable HARPEL MARILY, HARPEL Unavailable Unavailable MARILY HARPEL MARILY, HARPEL Unavailable Unavailable MARILY [facility] Un[facility], [facility] Un[facility], Unavailable Unavailable [facility] DIANA HICKMAN Unavailable Unavailable [facility] CALERO JANEE, CALERO Unavailable Unavailable JANEE [facility]available [facility], [facility] RENUSCH, RENUSCH Unavailable Unavailable RENUSCH HAILY, RENUSCH Unavailable Unavailable [facility] Un[facility] SOTINGEANU JUAN, Unavailable Unavailable [facility] Unavailable Unavailable [facility], [facility], Unavailable Unavailable [facility] MELANIE OZUNA Unavailable Unavailable MELANIE SHANKAR Unavailable Unavailable QUINN LOCKE Unavailable Unavailable QUINN COLLIER Unavailable Unavailable IAN WALKER FOR, WALKER Unavailable Unavailable FOR Purpose Continuity of Care Document - 08-01-2007 through 2016 Problems Code Diagnosis DOS Provider Status M542 CERVICALGIA 02-14-2017 [facility] [id number] PAIN IN 02-14-2017 [facility] R51 HEADACHE 02-14-2017 [facility] R102 PELVIC AND 11-17-2016 [facility] PERINEAL [facility] PAIN GROUP R109 UNSPECIFIED 11-17-2016 [facility] ABDOMINAL [facility] PAIN GROUP S12864 RETIREMENT 11-17-2016 [facility] CURRENT USE PHYSICIANS OF OPIATE GROUP ANALGESIC G8918 OTHER ACUTE 09-07-2016 [facility] POSTPROCEDU GROUP RAL PAIN M545 LOW BACK 09-07-2016 [facility] PAIN PHYSICIANS GROUP X50153 OTHER LONG 09-07-2016 [facility] TERM PHYSICIANS CURRENT GROUP DRUG THERAPY K5900 CONSTIPATIO 09-03-2016 [facility] N [facility], UNSPECIFIED PLLC A08941 PAIN IN 09-03-2016 [facility]OT [facility] [id number] CONTUSION 09-03-2016 [facility] OF RIGHT PHYSICIANS, FOOT PLLC INITIAL ENCOUNTER R58452F UNSPECIFIED 09-03-2016 [facility] IN[facility]Y [facility] FOOT [facility] INITIAL ENCOUNTER N803 ENDOMETRIOS 08-31-2016 [facility] PELVIC PERITONEUM N736 FEMALE 08-19-2016 [facility] PELVIC [facility] PERITONEAL GROUP ADHESIONS POSTINFECTI VE N945 SECONDARY 08-19-2016 [facility] DYSMENORRHE [facility]YSICI[facility] A GROUP R110 NAUSEA 07-21-2016 [facility] N809 ENDOMETRIOS 07-17-2016 [facility] IS [facility], UNSPECIFIED PLLC R1030 LOWER 07-17-2016 [facility] ABDOMINAL [facility], PAIN PLLC UNSPECIFIED Z302 ENCOUNTER 06-02-2016 [facility] FOR PHYSICIAN STERILIVENICE GROUP ON Z3009 ENCOUNTER 05-11-2016 [facility] OT GENERAL PHYSICIANS GROUP PLATE MILL MILL HAND&ADV ICE CONTRACEPT N8301 FOLLICULAR 05-01-2016 [facility] CYST OF MEDICAL RIGHT OVARY IMAGING ASS N8302 FOLLICULAR 05-01-2016 [facility] CYST OF MEDICAL LEFT OVARY IMAGING ASS N920 EXCESS & 05-01-2016 [facility] FREQUENT [facility]ICAL MENSTRUATIO IMAGING ASS N W/REGULAR CYCLE N9489 OTH COND 04-28-2016 [facility] W/FE PHYSICIANS GEN ORGN & GROUP MENSTRUAL CYCL U91455 PAIN IN 04-05-2016 [facility] R200 ANESTHESIA 04-05-2016 [facility] SKIN [facility] Z5320 PROC & TX 04-05-2016 [facility] NOT CARRIED [facility] OUT HOSPITA PATIENTS UNS REASON Z720 TOBACCO USE 04-05-2016 [facility] H6002 ABSCESS OF 01-19-2016 [facility] LEFT PHYS[facility], EXTERNAL PLLC EAR J029 ACUTE 01-19-2016 [facility] PHARYNGITIS [facility], PLLC UNSPECIFIED R1031 RIGHT LOWER 10-31-2015 [facility] QUADRANT [facility], PAIN PLLC Z309 ENCOUNTER 08-22-2015 ARON BENEDICT MD CONTRACEPTI VE MANAGEMENT UNS N10 ACUTE 05-10-2015 [facility] TIS INC N12 TUBULO-INTE 05-10-2015 [facility] RST PHYSICIANS, NEPHRITIS PLLC NOT SPEC ACUTE/CHRON N200 CALCULUS OF 05-03-2015 [facility] N390 URINARY 05-03-2015 ARON Urbina TRACT [facility] HERRERA INFECTION SITE NOT SPECIFIED R319 HEMATURIA 05-03-2015 ARON Urbina UNSPECIFIED [facility] HERRERA N8320 UNSPECIFIED 05-02-2015 [facility] OVARIAN [facility]ICAL CYSTS [facility] P09487 PERSONAL 04-15-2015 [facility] HISTORY OF MEDICAL URINARY IMAGING ASS CALCULI B9620 UNS E COLI 04-14-2015 [facility] CAUSE DZ INC CLASS ELSEWHERE 7242 LUMBAGO 03-15-2015 [facility] INC V571 OTHER 03-15-2015 [facility] THERAPY INC V242 ROUTINE 02-25-2015 [facility]IO REFERNCE FOLLOW-UP LABORATORIE S V2509 OT GENERAL 02-25-2015 ARON BENEDICT MD CNSL&ADVICE CONTRACEPT MANAGEMENT 5921 CALCULUS OF 01-17-2015 ANESTHESIA [facility] PSC 591 HYDRONEPHRO 01-11-2015 [facility]IS [facility] 6212 HYPERTROPHY 01-11-2015 [facility] 09617 UNSPECIFIED 01-09-2015 [facility] RENAL [facility] DISEASE GROUP W/DELIVERY 24920 C/S DELIV 01-09-2015 COMMUNITY W/O INDICAT ANESTH OF DELIV W/WO THE BLUE ANTPRTM COND V270 OUTCOME OF 01-09-2015 [facility] DELIVERY PHYSICIANS SINGLE GROUP LIVEBORN 57712 HEMATURIA 01-07-2015 [facility] UNSPECIFIED [facility] 42789 OTHER SPEC 01-07-2015 [facility] N INC W/DELIVERY 79695 OTHER 01-07-2015 [facility] SPECIFED [facility]ICAL COMPLICATIO IMAGING ASS N ANTEPARTUM 67840 ABDOMINAL 01-07-2015 [facility] PAIN, MEDICAL UNSPECIFIED IMAGING ASS SITE V221 SUPERVISION 01-01-2015 ARON BENEDICT MD NORMAL 3829 UNSPECIFIED 12-27-2014 [facility] OTITIS [facility] MEDIA GROUP 470 DEVIATED 12-27-2014 [facility] NASAL [facility]YS[facility] SEPTUM GROUP 4720 CHRONIC 12-27-2014 [facility] RHINITIS [facility] 54113 OTHER 12-25-2014 ARON BENEDICT MD LABOR, ANTEPARTUM 37884 UNSPECIFIED 12-17-2014 [facility] INFECTIVE [facility] OTITIS GROUP EXTERNA 5990 URINARY 12-17-2014 ARON BENEDICT MD INFECTION SITE NOT SPECIFIED V222 12-17-2014 [facility], PHYSICIANS INCIDENTAL GROUP V286 SCREENING 12-17-2014 [facility] STREPTOCOCC INC US B V771 SCREENING 10-31-2014 [facility] DIABETES INC MELLITUS 49497 UNSPECIFIED 10-29-2014 ARON Urbina VAGINITIS MARICHUY HERRERA AND VULVOVAGINI TIS 80078 INFECTIONS 10-02-2014 [facility] GENITOURINA RY TRACT ANTEPARTUM 31870 THREATENED 09-12-2014 [facility] PREMATURE [facility] LABOR GROUP ANTEPARTUM 7965 ABNORMAL 09-04-2014 [facility] SCREEN[facility] V2889 OTHER 08-20-2014 [facility] INC SCREENING 47102 OTHER 06-15-2014 ARON Urbina SPECIFIED MAR[facility]Y HERRERA DISEASES DUE TO CHLAMYDIAE 1121 CANDIDIASIS 06-15-2014 ARON Urbina OF VULVA MAR[facility] HERRERA AND VAGINA 6268 OTH D/O 05-29-2014 ARON Urbina MENSTRUATIO MAR[facility] HERRERA N&OTH ABN BLEED FE GNT TRACT V7231 ROUTINE 05-29-2014 ARON Urbina GYNECOLOGIC [facility] HERRERA AL EXAMINATION 09591 UNSPECIFIED 02-22-2014 [facility] TRICHOMONIA SIS 490 BRONCHITIS 02-22-2014 [facility] NOT N EMERGENCY SPECIFIED PHYS ACUTE OR CHRONIC 88859 FEVER 02-22-2014 [facility] UNSPECIF[facility] N EMERGENCY PHYS 7862 COUGH 02-22-2014 [facility] 8472 LUMBAR 01-10-2014 [facility] [place] E9289 UNSPECIFIED 01-10-2014 [facility] [place] 9895 TOXIC 12-28-2013 [facility]IN[facility] EFFECT [...] [facility] CONTR[facility] V255 INSERTION 08-15-2007 [facility] CONTRACEPTI [facility] VE Medications Na ND Rx Da Fi [...] 36 CE 0 11 PH TA AR NM MA NO CY PH EN OF 7. CY 5- NT 32 HI 5 AN A OX 65 05 05 12 3 00 HO Ac YC 16 -0 -2 .0 00 ME ti OD 20 3- 6- 00 02 TO ve ON 20 20 20 01 WN -A 75 17 17 35 CE 0 59 PH TA AR NM MA NO CY PH EN OF 7. [...] 34 CE 0 49 PH TA AR NM MA NO CY PH EN OF 7. [...] 8 86 PH CE AR TA MA NM CY NO PH OF 7. CY 5- NT 32 HI 5 AN A NA 68 01 02 14 7 00 HO Ac HI 46 -2 -1 .0 00 ME ti [...] CY NT PO HI WD AN A HI 00 01 02 30 10 00 HO [...] 8 84 PH CE AR TA MA NM CY NO PH OF 7. CY 5- [...] Procedure [place] [address] [facility] CERVICAL 7 MEDICAL SPINE W/[place] [address] PSYCHIATRIC HEAD/BRAI 7 MEDICAL MEDICAL N W/O IMAGING IMAGING CONTRAST ASS ASS MATERIAL RADIOLOGI 38897 PSYCHIATRIC C 7 MEDICAL MEDICAL EXAMINATI IMAGING IMAGING ON TIBIA ASS ASS & FIBULA 2 VIEWS DRUG TEST 02195 [facility] PRSMV 7 PHYSICIAN PHYSICIAN QUAL DIR S GROUP S GROUP OPTICAL OBS PER DAY RADEX 90343 [facility] GAMBINO FOOT 7 MEDICAL COMPLETE IMAGING MINIMUM 3 [place] [address] [facility] JOCY SURG 7 [facility] PATHOLOGY GROSS&RENEE ROSCOPIC EXAM ANESTHESI 06317 [facility] QUINN A VAGINAL 7 ANESTH OF THE HYSTERECT BLUE TANO INCL BIOPSY LAPS 79686 [facility] W/VAG 7 PHYSICIAN HYSTERECT GROUP 250 GM/&RMVL TUBE&/OVA HENRY URNLS DIP 25632 [facility] 7 PHYSICIAN STICK/TAB S GROUP LET RGNT NON-AUTO W/O MICRSCP LAPAROSCO 04139 [facility] PY 6 PHYSICIAN FULGURATI GROUP ON OVIDUCTS ANES IPER 34927 COMMUNITY FEEBACK LWR ABD 6 ANESTH W/LAPS OF THE TUBAL BLUE LIGATION/ [place] [address] [facility] RULA TRANSVAGI 6 MEDICAL DOUGLAS NAL IMAGING ASS HGB 96496 [facility] QUANTITAT 6 PHYSICIAN MARILY MICHAEL S GROUP TRANSCUTA NEOUS URINLS 66922 ARON BENEDICT DIP 6 [facility] CALIXTO STICK/[place] [address] [facility] GAMBINO ALL ABDOMEN & 6 MEDICAL PELVIS IMAGING W/CONTRAS ASS T MATERIAL REMOVAL 33440 ARON BENEDICT IMPLANTAB 6 [facility] CALIXTO LE CONTRACEP TIVE CAPSULES SURGICAL A4550 ARON BENEDICT TRAYS 6 MARICH[facility] CALIXTO URNLS DIP 44449 [facility] STICK/TAB INC INC LET REAGENT AUTO MICROSCOP Y BLOOD 81230 [facility] COUNT 5 [facility] COMPLETE INC INC AUTO&AUTO DIFRNTL WBC SUSCEPTIB 43542 [facility] LTY STDY 5 [facility] ANTIMICRB INC INC IAL MICRO/AGA R DILUTJ URINE 71030 [facility] TEST INC INC VISUAL COLOR CMPRSN METHS CULTURE 72343 [facility] BACTERIAL 5 [facility] INC INC QUANTTATI VE COLONY COUNT URINE CULTURE 31402 [facility] BCT 5 [facility] ISOL&PRSM INC INC PTV ID ISOLATE EA URINE COMPREHEN 06920 [facility] SIVE 5 [facility] METABOLIC INC INC PANEL URINLS 75567 ARON ODONNELLL DIP 5 MARICHU[facility] HERRERA MARILY STICK/TAB LET REAGNT NON-AUTO MICRSCPY URINE 47196 ARON BENEDICT 5 [facility] HERRERA MARILY [place] [address] [facility] GAMBINO ALL ABDOMEN & 5 MEDICAL PELVIS IMAGING W/[place] [address] [facility] TRANSVAGI 5 [facility] NAL INC INC COLLECTIO 68764 [facility] N VENOUS 5 [facility] BLOOD INC INC VENIPUNCT URE OBSERVATI 18370 [facility] MANCILLA ON CARE 5 [facility] MANAGEMEN T COMPREHEN 39978 [facility] SIVE 5 [facility] METABOLIC INC INC PANEL HOSPITAL G0378 [facility] OBSERVATI 5 [facility] ON INC INC SERVICE PER HOUR BLOOD 03539 [facility] COUNT 5 [facility] COMPLETE INC INC AUTO&AUTO DIFRNTL WBC BLOOD 91100 [facility] COUNT 5 [facility] COMPLETE INC INC AUTO&[place] [address] [facility] ABDOMEN & 5 [facility] PELVIS INC INC W/O CONTRAST MATERIAL HOSPITAL G0378 [facility] OBSERVATI 5 [facility] ON INC INC SERVICE PER HOUR BASIC 31716 [facility] METABOLIC 5 [facility] PANEL INC INC CALCIUM TOTAL COLLECTIO 21669 [facility] N VENOUS 5 [facility] BLOOD INC INC VENIPUNCT URE SBSQ 61832 [facility] OBSERVATI 5 [facility] CARE/DAY 15 MINUTES URINE 89685 [facility] TEST INC INC VISUAL COLOR CMPRSN METHS CUL BACT 66931 [facility] AEROBIC 5 [facility] ADDL INC INC METHS DEFINITIV E EA ISOL CULTURE 49725 [facility] BACTERIAL 5 [facility] INC [place] [address] [facility] INFUSION 5 [facility] THER INC INC PROPH ADDL SEQUENTIA L TO 1 HR COMPREHEN 71788 [facility] SIVE 5 [facility] METABOLIC INC INC PANEL IAADI 84025 [facility] INFLUENZA 5 [facility] B VIRUS INC INC IAADI 97516 [facility] INFFLUENZ 5 [facility] A A VIRUS INC INC BLOOD 38259 [facility] COUNT 5 [facility] COMPLETE INC INC AUTO&AUTO DIFRNTL WBC URNLS DIP 37711 [facility] STICK/TAB INC INC LET REAGENT AUTO MICROSCOP Y INITIAL 32144 [facility] OBSERVATI 5 [facility] CARE/DAY 30 MINUTES SUSCEPTIB 50515 [facility] LTY STDY 5 [facility] ANTIMICRB INC INC IAL [place] [address] [facility] INFUSION 5 [facility] THERAPY/P INC INC ROPHYLAXI S /DX 1ST TO 1 HR E-STIM G0283 [facility] 1/> AREAS 5 [facility] OTH THAN INC INC WND CARE PART TX PLAN THERAPEUT 52341 [facility] IC PX 1/> 5 [facility] AREAS INC INC EACH 15 MIN EXERCISES APPLICATI 42989 [facility] ON 5 [facility] MODALITY INC INC 1/> AREAS HOT/COLD PACKS THERAPEUT 15426 [facility] IC PX 1/> 5 [facility] AREAS INC INC EACH 15 MIN EXERCISES APPLICATI 93562 [facility] ON 5 [facility] MODALITY INC INC 1/> AREAS HOT/COLD PACKS E-STIM G0283 [facility] 1/> AREAS 5 [facility] OTH THAN INC INC WND CARE PART TX PLAN PHYSICAL 08150 [facility] THERAPY 5 [facility] EVALUATIO INC INC N URINE 21700 ARON Urbina 5 MARICH[facility] BENEDICT MD TEST VISUAL COLOR CMPRSN METHS INSJ 87919 ARON BENEDICT NON-BIODE 5 MAR[facility] CALIXTO GRADABLE DRUG DELIVERY IMPLANT CYTP C/V 06484 BIO BIO AUTO THIN 5 REFERNCE REFERNCE LYR LABORATOR LABORATOR PREPJ SCR IES IES MNL RESCR PHYS ETONOGEST J7307 ARON Urbina [facility] REL 5 MARICHUY HERRERA MARILY CNTRACPT IMPL SYS INCL IMPL & SPL ANES 42550 ANESTHESI SALENA TRURL 5 A STA FRAGMNTJ ASSOCIATE MANJ&/RMV S PSC L URETERAL CALCULUS URNLS DIP 17546 [facility] ARECHIGA 5 [facility] LET RGNT P NON-AUTO W/[place] [address] [facility] GAMBINO ALL ABDOMEN & 5 MEDICAL PELVIS IMAGING W/O ASS CONTRST 1/> B[place] [address] [facility] DELIVERY 5 PHYSICIAN MIKE ONLY S GROUP ANESTHESI 66289 [facility] A 5 ANESTH IAN OF THE DELIVERY BLUE ONLY LOW 741 [facility] CERVICAL 5 [facility] INC INC SECTION 95398 ARON Urbina [facility] DELIVERY 5 MARICHUY SANCHES W/POSTPAR ROMEO CARE SBSQ 42714 ARON Urbina [facility] 5 HARPEL MD MARILY CARE/DAY 25 MINUTES 12654 [facility] BIOPHYSIC 5 MEDICAL DOUGLAS AL IMAGING PROFILE ASS W/[place] [address] [facility] RETROPERI 5 MEDICAL DOUGLAS TONEAL IMAGING REAL TIME ASS W/IMAGE LIMITED US PREG 39132 [facility] UTERUS 5 MEDICAL DOUGLAS REAL TIME IMAGING F/U ASS TRNSABDL PER FETUS INITIAL 03318 [facility] 5 MARICHUY HERRERA MARILY CARE/DAY 50 MINUTES 19123 ARON BENEDICT NONSTRESS 5 [place] [address] [facility] INFUSION 5 [facility] THERAPY/P INC INC ROPHYLAXI S /DX 1ST TO 1 HR URNLS DIP 84722 [facility] STICK/TAB INC INC LET REAGENT AUTO MICROSCOP Y 46921 [facility] NONSTRESS 5 [facility] TEST INC INC EVAL C/V 76989 [facility] AMNIOTIC 5 [facility] FLUID INC INC PROTEIN QUAL EA SPECIMEN 04069 ARON BENEDICT NONSTRESS 5 MARICH[facility]Y HERRERA MARILY TEST CUL 64178 ARON BENEDICT PRSMPTV 5 MARICH[facility]Y HERRERA [facility] PTHGNC ORGANISM SCRN W/COLONY ESTIMJ PARTICLE 27703 [facility] AGGLUTINA 5 [facility] TION INC INC SCREEN EACH ANTIBODY GLUCOSE 52531 [facility] POST 5 [facility] GLUCOSE INC INC DOSE COLLECTIO 47022 [facility] N VENOUS 5 [facility] BLOOD INC INC VENIPUNCT URE SMR PRIM 96691 ARON BENEDICT SRC WET 5 MARICH[facility]Y HERRERA [facility] NFCT AGT SMR PRIM 23622 ARON BENEDICT SRC WET 5 MAR[facility] HERRERA [facility] AGT CULTURE [address] ISOL&PRSM PTV ID ISOLATE EA URINE CULTURE 06498 [facility] BACTERIAL [address] [place] [address] QUANTTATI VE COLONY COUNT URINE SUSCEPTIB 44905 [facility] LTY STDY [address] [place] [address] ANTIMICRB IAL MICRO/AGA R DILUTJ 98894 [facility] NONSTRESS 5 PHYSICIAN MIKE TEST S GROUP 18855 Enabled EmploymentENOM MentegramM CHROMOSOM 5 [facility] FOR FOR ANEUPLOID MOLECULA MOLECULA Y GENOMIC SEQ ANALYS COLLECTIO 16959 [facility] N VENOUS [address] [place] [address] BLOOD VENIPUNCT URE US PREG 99963 ARON BENEDICT UTERUS 5 MARICHUY CALIXTO AFTER 1ST TRIMEST GESTATION ALPHA-FET 39218 [facility] OPROTEIN 5 [facility] SERUM INC INC COLLECTIO 60947 [facility] N VENOUS 5 [facility] BLOOD INC INC VENIPUNCT URE GONADOTRO 55002 [facility] PIN 5 [facility] CHORIONIC [place] [address] [facility] ESTRIOL 5 [facility] INC INC CULTURE 51678 ARON BENEDICT CHLAMYDIA 4 MARICHUY HERRERA MARILY ANY SOURCE IADNA 49381 BIO BIO TRICHOMON 4 REFERNCE REFERNCE LABORATOR LABORATOR VAGINALIS IES IES AMPLIFIED PROBE TECH IAADIADOO 75389 ARON BENEDICT 4 MARICHUY CALIXTO TRICHOMON VAGINALIS IADNA 61159 ARON BENEDICT NEISSERIA 4 MARICH[facility] HERRERA MARILY GONORRHOE AE DIRECT PROBE TQ IADNA 77979 BIO BIO NEISSERIA 4 REFERNCE REFERNCE LABORATOR LABORATOR GONORRHOE IES IES AE AMPLIFIED PROBE TQ IADNA NOS 92977 BIO BIO 4 REFERNCE REFERNCE AMPLIFIED LABORATOR LABORATOR PROBE TQ IES IES EACH ORGANISM IADNA 01197 ARON BENEDICT HERPES 4 MARICHUY CALIXTO SIMPLX VIRUS DIRECT PROBE TQ IADNA 43968 BIO BIO CHLAMYDIA 4 REFERNCE REFERNCE LABORATOR LABORATOR TRACHOMAT IES IES IS AMPLIFIED PROBE TQ US PREG 05073 ARON R OLIVERPEL UTERUS 4 MARICHUY HERRERA MARILY REAL TIME W/IMAGE DCMTN TRANSVAG IADNA 74656 ARON R HARPEL HERPES 4 MARICHUY HERRERA MARILY SIMPLX VIRUS DIRECT PROBE TQ URINLS 50496 ARON R HARPEL DIP 4 MARICHUY HERRERA MARILY STICK/TAB LET REAGNT NON-AUTO MICRSCPY URINE 97744 ARON BOYDPEL 4 MARICHUY HERRERA MARILY TEST VISUAL COLOR CMPRSN METHS IAADIADOO 45394 ARON R ARON R 4 MARICHUY BENEDICT MD TRICHOMON VAGINALIS IADNA 66179 ARON BOYDPEL NEISSERIA 4 MARICHUY HERRERA MARILY GONORRHOE AE DIRECT PROBE TQ CULTURE 67541 ARON BOYDPEL CHLAMYDIA 4 MARICHUY HERRERA MARILY ANY SOURCE RADIOLOGI 57515 [facility] D C EXAM 4 MEDICAL CHEST 2 IMAGING VIEWS ASS FRONTAL&L ATERAL CULTURE 54211 [facility] HARPEL CHLAMYDIA 4 MARILY MARILY ANY SOURCE IAADIADOO 07875 [facility] HARPEL 4 MARILY MARILY TRICHOMON VAGINALIS IADNA 82048 [facility] HERPES 4 MARILY MARILY SIMPLX VIRUS DIRECT PROBE TQ IADNA 90762 [facility] NEISSERIA 4 MARILY MARILY GONORRHOE AE DIRECT PROBE TQ URINLS 52354 [facility] DIP 4 MARILY MARILY STICK/TAB LET REAGNT NON-AUTO MICRSCPY SUSCEPTIB 10205 COMBINED COMBINED ILITY 8 PHYSICIAN PHYSICIAN STUDY S LAB S LAB ANTIMICRO BIAL DISK METHOD CULTURE 91604 COMBINED COMBINED BACTERIAL 8 PHYSICIAN PHYSICIAN S LAB S LAB QUANTTATI VE COLONY COUNT URINE ETONOGEST J7307 [facility], REL 8 [facility]ALTH NENA J CNTRACPT [facility] [place] [facility] Encounters Encounter Start End Date Code Location Performer Type Date OFFICE 16306 [facility] OUTPATIEN 7 7 PHYSICIAN T VISIT S GROUP 15 MINUTES EMERGENCY 30801 IF[facility] ALCAZAR, 7 7 PHYSICIAN III DEPARTMEN S, PLLC T VISIT MODERATE SEVERITY OFFICE 39616 [facility] OUTPATIEN 7 7 PHYSICIAN T VISIT S GROUP 15 MINUTES OFFICE 60466 [facility] OUTPATIEN 7 7 PHYSICIAN T VISIT S GROUP 15 MINUTES OFFICE 84180 [facility] OUTPAT[facility] 7 7 PHYSICIAN T VISIT S GROUP 25 MINUTES EMERGENCY 09185 IFE[facility]I GINGER 7 7 PHYSICIAN DEPARTMEN S, PLLC T VISIT MODERATE SEVERITY OFFICE 25146 [facility] OUTPATIEN 7 7 PHYSICIAN T VISIT S GROUP 25 MINUTES EMERGENCY 74141 IF[facility] AUGUSTIN 7 7 PHYSICIAN DEPARTMEN S, PLLC T VISIT MODERATE SEVERITY EMERGENCY 75671 IFEANYI DE LA FUENTE 6 6 PHYSICIAN DEPARTMEN S, PLLC T VISIT HIGH/URGE NT SEVERITY OFFICE 78237 [facility] OUTPATIEN 6 6 PHYSICIAN MARILY T VISIT S GROUP 15 MINUTES OFFICE 87153 [facility] OUT[facility] 6 6 PHYSICIAN MARILY T VISIT S GROUP 25 MINUTES [facility] - 6 6 N OUTPATIEN COMMUNTIY T HOSPITA EMERGENCY 05897 [facility] 6 6 N DEPARTMEN COMMUNTIY T VISIT HOSPITA LIMITED/M INOR PROB EMERGENCY 90871 IFEANYI AUGUSTIN 6 6 PHYSICIAN HAILY DEPARTMEN S, PLLC T VISIT MODERATE SEVERITY OFFICE 05649 ARON BENEDICT OUTPATIEN 6 6 MARICHUY HERRERA MARILY T VISIT 5 MINUTES EMERGENCY 70000 IFEANYI GLEZ DEPT 6 6 PHYSICIAN U JUAN VISIT S, PLLC HIGH SEVERITY& THREAT FUNCJ OFFICE 43347 ARON BENEDICT OUTPATIEN 6 6 MARICHUY HERRERA MARILY T VISIT 25 MINUTES OFFICE 76056 [facility]ON BENEDICT OUTPATIEN 6 6 MARICHUY HERRERA MARILY T VISIT 5 MINUTES OFFICE 64123 ARON BENEDICT OUTPATIEN 6 6 MARICHUY HERRERA MARILY T VISIT 25 MINUTES [facility]OSPITAL [facility] - 5 5 [facility] OUT[facility] T EMERGENCY 15036 [facility] 5 5 [facility] DEPARTMEN INC T VISIT LOW/MODER SEVERITY EMERGENCY 81994 IFEANYI BRADLEY 5 5 [facility] T [facility] HIGH/URGE NT SEVERITY HOSPITAL [facility] - 5 5 [facility] OUTPATIEN INC T OFFICE 75382 ARON BENEDICT OUTPATIEN 5 5 MARICHUY CALIXTO T VISIT 15 MINUTES HOSPITAL [facility] - 5 5 [facility] OUTPATIEN INC T OFFICE 89112 [facility] MANCILLA OUTPATIEN 5 5 [facility]ISIT [facility] 15 [facility] - 5 5 [facility] OUTPATIEN INC T EMERGENCY 26046 [facility] 5 5 [facility] DEPARTMEN INC T VISIT HIGH/URGE NT SEVERITY EMERGENCY 05632 IFEANYI MILES DEPT 5 5 PHYSICIAN RENEE VISIT [facility] HIGH SEVERITY& THREAT [facility] NHI - 5 5 [facility] OUTPATIEN INC T OFFICE 39452 [facility] OUTPATIEN 5 5 PHYSICIAN RENEE T VISIT S GROUP 10 MINUTES OFFICE 29412 NHI ARECHIGA OUTPATIEN [address] NHI - 5 5 [facility] INPATIENT INC OFFICE 01481 ARON R HARPEL OUTPATIEN 5 5 MARICHUY CALIXTO T VISIT 15 MINUTES HOSPITAL [facility] - 5 5 [facility] OUTPATIEN INC T OFFICE 36200 ARON R HARPEL OUTPATIEN 5 5 MARICHUY CALIXTO T VISIT 15 MINUTES OFFICE 04437 [facility] OUTPATIEN 5 5 PHYSICIAN JANEE T NEW 30 S GROUP MINUTES OFFICE 21278 ARON R HARPEL OUTPATIEN 5 5 MARICHUY CALIXTO T VISIT 15 MINUTES EMERGENCY 78237 IFEANYI GARCIA, 5 5 PHYSICIAN JR IVAN LO S, [facility] T VISIT MODERATE SEVERITY HOSPITAL NHI - 5 5 [facility] OUTPATIEN INC T OFFICE 68513 [facility] OUTPATIEN 5 5 PHYSICIAN RENEE T VISIT S GROUP 10 MINUTES OFFICE 79836 ARON Urbina HARPEL OUTPATIEN 5 5 MARICHUY CALIXTO T VISIT 15 MINUTES OFFICE 49744 ARON Urbina HARPEL OUTPATIEN 5 5 MARICHUY CALIXTO T VISIT 15 MINUTES OFFICE 19851 ARON Urbina HARPEL OUTPATIEN 5 5 MARICHUY CALIXTO T VISIT 15 MINUTES [facility]OSPITAL [facility] - 5 5 [facility] T OFFICE 88909 ARON Urbina HARPEL OUTPATIEN 5 5 MARICHUY CALIXTO T VISIT 15 MINUTES OFFICE 11465 [facility]ON Urbina HARPEL OUTPATIEN 5 5 MARICHUY CALIXTO T VISIT 15 MINUTES [facility] [address] [place] [address] [place] [address] HOSPITAL OFFICE 48244 ARON Urbina HARPEL OUTPATIEN 5 5 MARICHUY CALIXTO T VISIT 15 MINUTES OFFICE 22015 ARON ODONNELLL OUTPATIEN 5 5 MARICHUY HERRERA MARILY T VISIT 15 MINUTES [facility] NH[facility] - 5 5 [facility] [facility] T OFFICE [id number] ARON BENEDICT OUTPATIEN 5 5 MARICHUY HERRERA MARILY T VISIT 15 MINUTES OFFICE 90859 ARON BENEDICT OUTPATIEN 5 5 MARICHUY HERRERA MARILY T VISIT 15 MINUTES OFFICE 77054 ARON ODONNELLL OUTPATIEN 4 4 MARICHUY HERRERA MARILY T VISIT 15 MINUTES OFFICE 54695 ARON BENEDICT OUTPATIEN 4 4 MARICHUY HERRERA MARILY T VISIT 15 MINUTES [facility] 76170 ARON BENEDICT PREVENTIV 4 4 MARICHUY HERRERA MARILY E MED EST PATIENT 18-39 [address] [facility] [place] 4 4 [facility] DEPARTMEN EMERGENCY T VISIT PHYS HIGH/URGE NT SEVERITY EMERGENCY 84022 [facility]IS [facility]IS [facility] MODERATE SEVERITY EMERGENCY 58661 MELANIE NAVARRO 4 4 RYA RYA DEPARTMEN T VISIT HIGH/URGE NT SEVERITY INITIAL 78255 MARICHUY BENEDICT PREVENTIV 4 4 MARILY MARILY E MEDICINE NEW PT AGE 18-39YRS PERIODIC 21133 [facility], PREVENTIV 8 8 HEALTH NENA J E MED EST CLINIC OF PATIENT 12-17YRS [facility] OFFICE 54550 [facility]'S [facility], OUTPATIEN 8 8 HEALTH NENA J T VISIT CLINIC OF 15 MINUTES [facility] OFFICE 12561 WOMEN'S SQUIRES, OUTPATIEN 8 8 HEALTH NENA J T VISIT CLINIC OF 15 MINUTES [facility] [place]
--- OUTSIDE RECORDS SUMMARY | 2017-06-07 08:30 | External Medical Summary Rpt | CCD ---
Author Author , BESS KELLOGG Address Unknown Phone [email or web address] Immunization Name Date Rout CVX Reac Dose [...]
--- OUTSIDE RECORDS SUMMARY | 2017-06-07 08:30 | External Medical Summary Rpt | CCD ---
Author Author , BESS KELLOGG Address Unknown Phone [email or web address] Immunization Name Date Rout CVX Reac Dose [...]
== END ==
LOC: ER 08:02
DX: N76.4 Abscess of vulva (principal); Z79.899 Other long term (current) drug therapy; Z87.442 Personal history of urinary calculi; F17.210 Nicotine dependence, cigarettes, uncomplicated